=== PATIENT | female | born 1940 | race Hispanic/Latino ===

== ENCOUNTER 2017-01-30 12:17 | Inpatient (IN) | payer MEDICARE, OTHER ==
[~2017-01-30] VITALS: Ht 165.1 cm; Wt 137.9 kg
[~2017-01-30 12:17] MED LIST: AMLODIPINE BESYL5 MG PO; DETROL LA4 MG PO; DICYCLOMINE HCL10 MG PO; LOSARTAN POTAS100 MG PO; NEXIUM40 MG PO; NOVOLOG100 UNIT/1 SQ; SERTRALINE HCL50 MG PO
[2017-01-30] MEDS ORDERED: MORPHINE SULFATE 2 MG/ML SYR IV STA (14:32)
[2017-01-30 15:03] LABS: BASOPHILS % 0.1 % (0.0-1.0); EOSINOPHILS # (AUTO) 0.1 (0.0-0.4); HEMATOCRIT 27.9 % (34.2-44.1); HEMOGLOBIN 8.7 g/dL (12.0-16.0); LYMPHOCYTES # (AUTO) 0.8 (1.0-3.2); MEAN CORPUSCULAR HEMOGLOBIN 25.1 pg (28-32); MEAN CORPUSCULAR HGB CONC 31.2 g/dL (31-35); MEAN CORPUSCULAR VOLUME 80.4 fL (81-99); MONOCYTES # (AUTO) 0.4 (0.2-0.8); MONOCYTES % 4.4 % (4.4-11.3); NEUTROPHILS % 84.1 % (38.7-80.0); PLATELET COUNT 242 x10e3/uL (140-360); RED BLOOD COUNT 3.47 x10e6/uL (3.6-5.1)
[2017-01-30 15:17] LABS: ALANINE AMINOTRANSFERASE 11 IU/L (0-55); ALBUMIN 2.8 g/dL (3.5-5.0); ALBUMIN/GLOBULIN RATIO 0.6 (0.8-2.0); ALKALINE PHOSPHATASE 147 IU/L (40-150); ANION GAP 12.5 mmol/L (8-16); BLOOD UREA NITROGEN 20 mg/dL (7-26); BUN/CREATININE RATIO 24 (6-25); CALCIUM 8.7 mg/dL (8.4-10.2); CARBON DIOXIDE 27 mmol/L (22-29); CHLORIDE 106 mmol/L (98-107); CREATININE, SERUM 0.83 mg/dL (0.57-1.11); EST GLOMERULAR FILTRATION RATE > 60 ML/MIN (60-); GLUCOSE 84 mg/dL (74-118); POTASSIUM 4.5 mmol/L (3.5-5.1); SODIUM 141 mmol/L (136-145)
--- NOTE | 2017-01-30 16:03 | Diagnostic Imaging Report ---
PROCEDURE:HIP RIGHT 2-3 VW (+/- PELVIS) COMPARISON:None. INDICATIONS:FALL FINDINGS: BONES: Normal mineralization. No acute fracture or dislocation. Mild degenerative osteoarthrosis of the bilateral SI and hip joints. SOFT TISSUES:Extensive vascular calcification. OTHER:Degenerative changes of the lower lumbar spine. Phleboliths on the left hemipelvis. CONCLUSION: No acute displaced fracture. Jennifer Roberts M.D. Dictated by: Jennifer Roberts M.D. on 01/30/2017 at 16:10 Electronically approved by: Jennifer Roberts M.D. on 01/30/2017 at 16:10
[2017-01-30] MEDS ORDERED: HYDROCODONE/APAP 5MG-325MG TAB PO ONE (17:00)
[2017-01-30 17:10] LABS: BILIRUBIN,URINE NEGATIVE (NEGATIVE); KETONES,URINE NEGATIVE (NEGATIVE); LEUKOCYTE ESTERASE ,URINE TRACE (NEGATIVE); PROTEIN,URINE DIPSTICK NEGATIVE (NEGATIVE); URINE UROBILINOGEN 0.2 mg/dL (0.2 - 1)
[2017-01-30 17:12] LABS: CLARITY,URINE HAZY (CLEAR); COLOR,URINE YELLOW (YELLOW); NITRITE,URINE POSITIVE (NEGATIVE)
[2017-01-30 17:38] LABS: EPITHELIAL CELLS,URINE FEW /LPF; RBC,URINE 0-5 /HPF (0-5)
[2017-01-30 17:39] LABS: BACTERIA,URINE MANY /HPF
--- NOTE | 2017-01-30 18:39 | Diagnostic Imaging Report ---
PROCEDURE:CT PELVIS WITHOUT CONTRAST COMPARISON:None. INDICATIONS:FALL, RIGHT HIP PAIN TECHNIQUE:CT images were created without intravenous contrast. FINDINGS: PELVIC NODES:No pelvic or angle lymphadenopathy. PELVIC ORGANS:Atrophic uterus. BONES: Generalized osteopenia. Mild irregularity of the superior aspect of the right greater trochanter as seen on the coronal reconstruction image 97 series 501 may be related to enthesopathy versus less likely a small avulsion injury. Well-corticated ossicle medial to the left femoral neck on the axial image 90 series 3, suggestive of remote avulsion injury of the lesser trochanter. Mild degenerative changes of the bilateral SI joints. Facet arthropathy bilaterally at L5-S1. Small well-corticated ossicles posterior to the proximal humeral diaphysis as seen on axial image 115 series 4. OTHER: Jalloh catheter within decompressed urinary bladder. Vascular calcifications. CONCLUSION:No displaced fracture. No femoral neck fracture. Mild right greater trochanteric enthesopathy versus much less likely a small avulsion injury. Jennifer Roberts M.D. Dictated by: Jennifer Roberts M.D. on 01/30/2017 at 18:45 Electronically approved by: Jennifer Roberts M.D. on 01/30/2017 at 18:45
[2017-01-30] MEDS ORDERED: DEXTROSE 5%/0.45% SOD CHL 1,000 ML IV ONE (20:00)
[2017-01-30] MEDS ORDERED: DEXTROSE 50% SYRINGE 50 ML IV PRN (20:00)
[2017-01-30 23:00] VITALS: BP 122/62
[2017-01-30 23:08] VITALS: BP 122/62
[2017-01-31 00:58] VITALS: BP 122/62
[2017-01-31 04:00] VITALS: BP 123/58
[2017-01-31] MEDS: MORPHINE SULFATE 2 MG/ML SYR IV PRN ×4 (05:42→22:07)
[2017-01-31 07:24] LABS: BASOPHILS % 0.5 % (0.0-1.0); EOSINOPHILS # (AUTO) 0.2 (0.0-0.4); EOSINOPHILS % 3.4 % (0.0-6.0); HEMATOCRIT 24.5 % (34.2-44.1); LYMPHOCYTES # (AUTO) 0.9 (1.0-3.2); LYMPHOCYTES % 15.9 % (18.0-39.1); MEAN CORPUSCULAR HEMOGLOBIN 25.3 pg (28-32); MEAN CORPUSCULAR HGB CONC 30.6 g/dL (31-35); MEAN CORPUSCULAR VOLUME 82.5 fL (81-99); MONOCYTES # (AUTO) 0.5 (0.2-0.8); MONOCYTES % 8.8 % (4.4-11.3); PLATELET COUNT 208 x10e3/uL (140-360); RED BLOOD COUNT 2.97 x10e6/uL (3.6-5.1); RED CELL DISTRIBUTION WIDTH 16.3 % (11.7-14.4)
[2017-01-31 07:32] LABS: HEMOGLOBIN 7.5 g/dL (12.0-16.0)
[2017-01-31 07:53] LABS: ALANINE AMINOTRANSFERASE 9 IU/L (0-55); ALBUMIN 2.3 g/dL (3.5-5.0); ALBUMIN/GLOBULIN RATIO 0.6 (0.8-2.0); ALKALINE PHOSPHATASE 127 IU/L (40-150); ANION GAP 10.9 mmol/L (8-16); BLOOD UREA NITROGEN 17 mg/dL (7-26); BUN/CREATININE RATIO 20 (6-25); CALCIUM 8.3 mg/dL (8.4-10.2); CARBON DIOXIDE 27 mmol/L (22-29); CHLORIDE 106 mmol/L (98-107); CREATININE, SERUM 0.83 mg/dL (0.57-1.11); EST GLOMERULAR FILTRATION RATE > 60 ML/MIN (60-); GLUCOSE 154 mg/dL (74-118); POTASSIUM 3.9 mmol/L (3.5-5.1); SODIUM 140 mmol/L (136-145)
[2017-01-31 08:30] VITALS: BP 124/58
[2017-01-31] MEDS ORDERED: LORAZEPAM INJ 2 MG/ML VIAL IV PRN ×2 (11:15→18:30)
[2017-01-31 11:21] LABS: FERRITIN 174.94 ng/mL (4.63-204.00)
[2017-01-31 11:48] LABS: FOLATE 11.6 ng/mL (7.0-15.4)
[2017-01-31] MEDS: CEFTRIAXONE SOD 1 GM in WATER STERILE 10ML VIAL 10 ML IV SCH (11:55)
[2017-01-31 12:40] VITALS: BP 119/58
--- NOTE | 2017-01-31 12:44 | History and Physical ---
REASON FOR ADMISSION: Generalized weakness, UTI and hypoglycemia. HISTORY OF PRESENT ILLNESS: This is a 76-year-old female that presents with the above complaint. Patient presented yesterday. After feeling very weak during the day, patient got up to try to walk, and she says she fell onto her right side. Did not hit her head but did hit her right hip. Patient states that she was on the ground at the time, and her daughter called 11-02-. On paramedics' arrival, they noted that the patient's blood sugar was in the 40s-50s. Patient was brought to the emergency room for hypoglycemia and fall. Patient was noted to be anemic as well and has evidence on urinalysis of a UTI. Patient denies any fever, chills or any night sweats. She does state she does have some dysuria and urinary frequency. REVIEW OF SYSTEMS: A 14-point review of systems reviewed and negative other than what is previously stated in patient's HPI. PAST MEDICAL HISTORY: Positive for 1. Diabetes mellitus type 2. 2. Hypertension. PAST SURGICAL HISTORY 1. Cataract surgery. 2. Hernia repair. 3. I\T\D on her legs previously. PSYCH HISTORY: Reviewed and negative. SOCIAL HISTORY: Denies any tobacco, alcohol or illicit drug use. FAMILY HISTORY: Reviewed and negative. ALLERGIES: NO KNOWN DRUG ALLERGIES. MEDICATIONS: Please see the patient's reconciled home medication list. OBJECTIVE FINDINGS VITAL SIGNS: Patient's temperature is 98.8, T-max is 100.2, blood pressure 124/58, pulse of 94, respiration is 18, and patient's O2 sat is 94% on room air. IN GENERAL: This is a female. She is lying in bed. Patient is in no acute distress at this time. HEENT: Pupils are equal, round, reactive to light and accommodation. Extraocular muscles are intact. Anicteric sclerae. NECK: Trachea midline. No thyromegaly appreciated. CARDIOVASCULAR: Normal S1 and S2. No clicks, gallops or rubs appreciated. ABDOMINAL: Nontender, nondistended. Normoactive bowel sounds. EXTREMITIES: With 2+ pulses in upper and lower extremities bilaterally. LYMPHATIC: No lymphadenopathy appreciated. NEUROLOGICAL: GCS is 15 out of 15. PSYCH: AO x3. No suicidal ideations. LABS: The patient's WBC count is 5.6, hemoglobin is 7.5, hematocrit is 24.5 and platelet count is 208. Patient's MCV is 82.5. Chemistry shows a sodium of 140, potassium is 3.9, chloride is 106, bicarb is 27. Patient's BUN is 17, creatinine is 0.83. Patient's blood sugar is 139. LFTs otherwise unremarkable except for a decrease in albumin of 2.3. Patient's urinalysis showed positive nitrites, positive leukocytes, 11-20 WBCs and many bacteria. IMAGING STUDIES: The patient's pelvis and hip only indicated a mild right greater trochanteric enthesopathy versus a small avulsion injury with no evidence of any fractures. ASSESSMENT 1. Generalized weakness. 2. Symptomatic hypoglycemia. 3. Status post fall. 4. Complicated urinary tract infection. 5. Anemia, unclear etiology. 6. Diabetes mellitus type 2. 7. Morbid obesity. PLAN: This is a 76-year-old female who presents with status post fall, generalized weakness, hypoglycemia and UTI. For this patient's weakness, will have Physical Therapy come and evaluate this patient and put her on fall precautions. For now will treat secondary causes for the weakness like UTI and hypoglycemia and see if this improves her strength. The daughter states that she has had multiple falls over the past couple of weeks; so, will monitor her closely and evaluate her for inpatient versus outpatient rehab ultimately. For the patient's anemia, will get an FOBT and an anemia panel to evaluate the etiology of the patient's anemia. Will monitor her labs in the a.m. Patient is hemodynamically stable; so, does not need serial H\T\H's at this time. Patient states her stools are normal color and consistency; so, will see if the FOBT is positive. GI may need to be consulted for endoscopic evaluation. For the patient's hypoglycemia, patient will have a normal ADA diet and will have her covered with sliding-scale coverage only. For the patient's falls, patient will be on fall precautions and patient has been educated if she wants to get up and walk around to evaluate by Physical Therapy to have nurse assistance. For the patient's UTI, will put her on Rocephin. The cultures are growing gram-negative bacilli already. Will wait for final culture results and see if it needs to be adjusted. For the patient's diabetes, the patient will be on a sliding scale. This patient will be under observation but if does not improve may need to be switched to inpatient as she potentially will be here for greater than 2 midnights. Job#: [id number] EV
[2017-01-31] MEDS: INSULIN REGULAR, HUMAN 100 UNIT/1 ML 3ML VIAL SQ SCH ×3 (13:22→21:56)
[2017-01-31 16:15] VITALS: BP 133/62
[2017-01-31] MEDS: HYDROCODONE/APAP 5MG-325MG TAB PO PRN (18:31)
[2017-01-31 20:00] VITALS: BP 138/63
[2017-02-01 00:25] VITALS: BP 120/55
[2017-02-01 03:45] VITALS: BP 126/58
[2017-02-01 06:17] LABS: BASOPHILS % 0.5 % (0.0-1.0); EOSINOPHILS # (AUTO) 0.3 (0.0-0.4); EOSINOPHILS % 4.3 % (0.0-6.0); HEMATOCRIT 25.3 % (34.2-44.1); LYMPHOCYTES # (AUTO) 1.2 (1.0-3.2); LYMPHOCYTES % 19.8 % (18.0-39.1); MEAN CORPUSCULAR HEMOGLOBIN 24.8 pg (28-32); MEAN CORPUSCULAR HGB CONC 30.4 g/dL (31-35); MEAN CORPUSCULAR VOLUME 81.4 fL (81-99); MONOCYTES # (AUTO) 0.6 (0.2-0.8); MONOCYTES % 9.2 % (4.4-11.3); NEUTROPHILS # (AUTO) 4.1 (2.1-6.9); NEUTROPHILS % 65.9 % (38.7-80.0); PLATELET COUNT 204 x10e3/uL (140-360); RED BLOOD COUNT 3.11 x10e6/uL (3.6-5.1); RED CELL DISTRIBUTION WIDTH 16.2 % (11.7-14.4)
[2017-02-01 06:24] LABS: HEMOGLOBIN 7.7 g/dL (12.0-16.0)
[2017-02-01 06:38] LABS: ANION GAP 11.9 mmol/L (8-16); BLOOD UREA NITROGEN 14 mg/dL (7-26); BUN/CREATININE RATIO 16 (6-25); CALCIUM 7.9 mg/dL (8.4-10.2); CARBON DIOXIDE 26 mmol/L (22-29); CHLORIDE 106 mmol/L (98-107); CREATININE, SERUM 0.87 mg/dL (0.57-1.11); EST GLOMERULAR FILTRATION RATE > 60 ML/MIN (60-); GLUCOSE 135 mg/dL (74-118); POTASSIUM 3.9 mmol/L (3.5-5.1); SODIUM 140 mmol/L (136-145)
[2017-02-01] MEDS: INSULIN REGULAR, HUMAN 100 UNIT/1 ML 3ML VIAL SQ SCH ×4 (08:00→20:33)
[2017-02-01 09:01] VITALS: BP 131/60
[2017-02-01] MEDS: CEFTRIAXONE SOD 1 GM in WATER STERILE 10ML VIAL 10 ML IV SCH (10:35)
[2017-02-01] MEDS: HYDROCODONE/APAP 5MG-325MG TAB PO PRN (11:11)
[2017-02-01] MEDS ORDERED: SODIUM CHLORIDE 0.9% 250ML 250 ML IV ONE (12:00)
[2017-02-01 12:10] VITALS: BP 128/60
[2017-02-01] MEDS: PHENAZOPYRIDINE HCL 100 MG TAB PO SCH ×2 (14:28→20:33)
[2017-02-01] MEDS ORDERED: FUROSEMIDE40 MG PO (15:29)
[2017-02-01] MEDS ORDERED: METOPROLOL TART25 MG PO (15:29)
[2017-02-01] MEDS ORDERED: SUCRALFATE1 GM PO (15:29)
[2017-02-01] MEDS ORDERED: LYRICA50 MG PO (15:29)
[2017-02-01] MEDS ORDERED: CITALOPRAM HBR20 MG PO (15:29)
[2017-02-01] MEDS: MEGESTROL ACETATE 40 MG TAB PO SCH (16:15)
[2017-02-01 16:42] VITALS: BP 125/56
[2017-02-01 20:00] VITALS: BP 121/65
[2017-02-01] MEDS: PREGABALIN 50 MG CAP PO SCH (20:33)
[2017-02-01] MEDS ORDERED: SODIUM CHLORIDE 0.9% 250ML 250 ML ONE (21:46)
[2017-02-02 00:59] VITALS: BP 116/66
[2017-02-02] MEDS: HYDROCODONE/APAP 5MG-325MG TAB PO PRN (02:01)
[2017-02-02 05:33] VITALS: BP 121/76
[2017-02-02 07:51] LABS: BASOPHILS % 0.5 % (0.0-1.0); EOSINOPHILS # (AUTO) 0.3 (0.0-0.4); LYMPHOCYTES % 17.8 % (18.0-39.1); MEAN CORPUSCULAR HEMOGLOBIN 25.4 pg (28-32); MEAN CORPUSCULAR VOLUME 81.9 fL (81-99); MONOCYTES # (AUTO) 0.5 (0.2-0.8); MONOCYTES % 7.9 % (4.4-11.3); NEUTROPHILS % 68.5 % (38.7-80.0); PLATELET COUNT 199 x10e3/uL (140-360); RED BLOOD COUNT 3.54 x10e6/uL (3.6-5.1); RED CELL DISTRIBUTION WIDTH 15.4 % (11.7-14.4)
[2017-02-02] MEDS: INSULIN REGULAR, HUMAN 100 UNIT/1 ML 3ML VIAL SQ SCH ×4 (08:00→22:25)
[2017-02-02 08:02] VITALS: BP 144/65
[2017-02-02 08:11] LABS: ANION GAP 10.6 mmol/L (8-16); BLOOD UREA NITROGEN 13 mg/dL (7-26); BUN/CREATININE RATIO 15 (6-25); CARBON DIOXIDE 27 mmol/L (22-29); CHLORIDE 105 mmol/L (98-107); CREATININE, SERUM 0.86 mg/dL (0.57-1.11); EST GLOMERULAR FILTRATION RATE > 60 ML/MIN (60-); GLUCOSE 145 mg/dL (74-118); POTASSIUM 3.6 mmol/L (3.5-5.1); SODIUM 139 mmol/L (136-145)
[2017-02-02] MEDS ORDERED: PANTOPRAZOLE SOD 40 MG TABEC PO SCH (09:00)
[2017-02-02] MEDS: FUROSEMIDE 40 MG TAB PO SCH (09:01)
[2017-02-02] MEDS: PHENAZOPYRIDINE HCL 100 MG TAB PO SCH ×3 (09:01→22:25)
[2017-02-02] MEDS: METOPROLOL TARTRATE 25 MG TAB PO SCH (09:01)
[2017-02-02] MEDS: AMLODIPINE BESYLATE 10 MG TAB PO SCH (09:01)
[2017-02-02] MEDS: CITALOPRAM HYDROBROMIDE 20 MG TAB PO SCH (09:01)
[2017-02-02] MEDS: MEGESTROL ACETATE 40 MG TAB PO SCH ×2 (09:01→18:33)
[2017-02-02] MEDS: MUPIROCIN 2% OINT 22 GM TUBE TOP SCH (10:34)
[2017-02-02] MEDS: CEFTRIAXONE SOD 1 GM in WATER STERILE 10ML VIAL 10 ML IV SCH ×2 (10:35→22:25)
[2017-02-02 11:55] VITALS: BP 120/58
[2017-02-02] MEDS ORDERED: LORAZEPAM INJ 2 MG/ML VIAL IV PRN (12:30)
[2017-02-02 16:14] VITALS: BP 151/73
[2017-02-02] MEDS: DOCUSATE SODIUM 100 MG CAP PO SCH (17:23)
[2017-02-02] MEDS: MULTIVITAMINS/MINERALS TAB PO SCH (17:23)
[2017-02-02] MEDS: FERROUS SULFATE 325 MG TAB PO SCH (17:23)
[2017-02-02] MEDS: PANTOPRAZOLE SOD 40 MG TABEC PO SCH (17:23)
[2017-02-02] MEDS: ASCORBIC ACID 500 MG TAB PO SCH (17:24)
[2017-02-02] MEDS: OYST-CAL-D 500MG TABLET PO SCH (17:24)
[2017-02-02] MEDS: ENOXAPARIN SOD INJ 40 MG/0.4 ML SYR SC SCH (17:24)
[2017-02-02 20:00] VITALS: BP 153/75
[2017-02-02] MEDS ORDERED: CEFTRIAXONE SOD 1 GM VIAL ONE (22:15)
[2017-02-02] MEDS: PREGABALIN 50 MG CAP PO SCH (22:25)
[2017-02-03] VITALS: BP 146/71
[2017-02-03 04:00] VITALS: BP 149/77
[2017-02-03] MEDS: INSULIN REGULAR, HUMAN 100 UNIT/1 ML 3ML VIAL SQ SCH ×4 (07:30→20:54)
[2017-02-03] MEDS: PANTOPRAZOLE SOD 40 MG TABEC PO SCH ×2 (07:30→16:30)
[2017-02-03 07:40] LABS: BASOPHILS % 0.3 % (0.0-1.0); EOSINOPHILS # (AUTO) 0.3 (0.0-0.4); EOSINOPHILS % 5.3 % (0.0-6.0); HEMATOCRIT 29.5 % (34.2-44.1); HEMOGLOBIN 9.1 g/dL (12.0-16.0); LYMPHOCYTES # (AUTO) 1.2 (1.0-3.2); LYMPHOCYTES % 19.1 % (18.0-39.1); MEAN CORPUSCULAR HEMOGLOBIN 24.9 pg (28-32); MEAN CORPUSCULAR HGB CONC 30.8 g/dL (31-35); MEAN CORPUSCULAR VOLUME 80.8 fL (81-99); MONOCYTES # (AUTO) 0.5 (0.2-0.8); MONOCYTES % 8.1 % (4.4-11.3); NEUTROPHILS % 66.9 % (38.7-80.0); PLATELET COUNT 210 x10e3/uL (140-360); RED BLOOD COUNT 3.65 x10e6/uL (3.6-5.1); RED CELL DISTRIBUTION WIDTH 15.9 % (11.7-14.4)
[2017-02-03 07:57] VITALS: BP 129/66
[2017-02-03] MEDS: OYST-CAL-D 500MG TABLET PO SCH ×2 (08:00→17:00)
[2017-02-03] MEDS: ASCORBIC ACID 500 MG TAB PO SCH ×2 (08:00→17:00)
[2017-02-03] MEDS: FERROUS SULFATE 325 MG TAB PO SCH ×2 (08:00→17:00)
[2017-02-03] MEDS: MULTIVITAMINS/MINERALS TAB PO SCH ×2 (08:00→17:00)
[2017-02-03 08:12] LABS: ANION GAP 11.5 mmol/L (8-16); CREATININE, SERUM 1.12 mg/dL (0.57-1.11); POTASSIUM 3.5 mmol/L (3.5-5.1)
[2017-02-03] MEDS: DOCUSATE SODIUM 100 MG CAP PO SCH ×2 (09:00→17:00)
[2017-02-03] MEDS: FUROSEMIDE 40 MG TAB PO SCH (09:00)
[2017-02-03] MEDS: CITALOPRAM HYDROBROMIDE 20 MG TAB PO SCH (09:00)
[2017-02-03] MEDS: MEGESTROL ACETATE 40 MG TAB PO SCH ×2 (09:00→17:00)
[2017-02-03] MEDS: AMLODIPINE BESYLATE 10 MG TAB PO SCH (09:00)
[2017-02-03] MEDS: MUPIROCIN 2% OINT 22 GM TUBE TOP SCH (09:00)
[2017-02-03] MEDS: METOPROLOL TARTRATE 25 MG TAB PO SCH (09:00)
[2017-02-03] MEDS: PHENAZOPYRIDINE HCL 100 MG TAB PO SCH ×3 (09:00→20:54)
[2017-02-03] MEDS: CEFTRIAXONE SOD 1 GM in WATER STERILE 10ML VIAL 10 ML IV SCH ×2 (09:00→20:54)
[2017-02-03] MEDS ORDERED: CEFTRIAXONE SOD 1 GM VIAL ONE ×2 (09:05→20:42)
[2017-02-03 11:33] VITALS: BP 136/76
--- NOTE | 2017-02-03 13:22 | Diagnostic Imaging Report ---
EXAM: MRI PELVIS WO, MRI HIP RIGHT WO DATE: 02/02/2017 12:56 PM INDICATION: Fall/right hip pain. COMPARISON: CT dated 01/30/2017 Technique: Multiplanar multi sequence MRI of the pelvis/right hip was obtained without contrast. Limitations: Image quality moderately degraded secondary to morbid obesity. FINDINGS: No distinct marrow edema is present in the pelvis or hips to suggest occult fracture. Mild degenerative changes are present in the right hip with a small subchondral cyst in the right acetabulum. There is moderate edema in the musculature anterior and posterior to the right hip most consistent with strain. No significant joint effusion is present in either hip. No suspicious signal is identified in the sacrum or coccyx. No free fluid or adenopathy is present in the pelvis. Visualized bowel is unremarkable. Urinary bladder, uterus, and adnexa are grossly unremarkable. IMPRESSION: Within limitations of exam as above, no abnormal marrow signal present to suggest hip fracture. Mild abnormal signal the musculature about the right hip most consistent with strain/contusion. Case discussed with Dr. Millan at 1:00 PM on 02/03/2017. Signed by: Dr. Jonny Rodriguez MD on 02/03/2017 1:13 PM
[2017-02-03] MEDS: HYDROCODONE/APAP 5MG-325MG TAB PO PRN (15:04)
[2017-02-03 16:09] VITALS: BP 151/76
[2017-02-03] MEDS: ENOXAPARIN SOD INJ 40 MG/0.4 ML SYR SC SCH (17:00)
[2017-02-03 20:00] VITALS: BP 130/64
[2017-02-03] MEDS ORDERED: ACETAMINOPHEN 325 MG TAB PO PRN (20:15)
[2017-02-03] MEDS: PREGABALIN 50 MG CAP PO SCH (20:54)
[2017-02-03] MEDS ORDERED: GUAIFENESIN 600 MG TAB PO PRN (21:00)
[2017-02-03] MEDS: ALBUTEROL/IPRATROPIUM 3 ML NEB NEB SCH (23:45)
[2017-02-04] VITALS: BP 138/70
[2017-02-04] MEDS: ALBUTEROL/IPRATROPIUM 3 ML NEB NEB SCH ×6 (03:00→23:05)
[2017-02-04 04:00] VITALS: BP 145/73
--- NOTE | 2017-02-04 05:04 | Progress Note ---
DATE: February 03, 2017 SUBJECTIVE: Patient is seen at the bedside. Doing well. No distress. OBJECTIVE VITALS: Afebrile. Vital signs stable. EXTREMITIES: Has a grade 1 ulcer on the lateral aspect of the 5th metatarsophalangeal joint and a grade 2 ulcer on the medial aspect of the right ankle, healing slowly. Skin temperature is warm to touch. Pedal pulses are diminished. ASSESSMENT: Multiple grade 2 ulcers with diabetic neuropathy with edema and peripheral artery disease. PLAN: Will continue local wound care. Continue compression dressings with lymphedema pumps. Dr. Benitez will be consulting Dr. Brody for vascular evaluation. Will continue to follow. Job#: [id number] DANIELE
--- NOTE | 2017-02-04 06:12 | Diagnostic Imaging Report ---
EXAMINATION: CHEST SINGLE (PORTABLE) INDICATION: Wheezing COMPARISON: None FINDINGS: TUBES and LINES: None. LUNGS: Lungs are not well inflated. There are bibasilar atelectasis. There is mild prominence of the central pulmonary vasculature, consistent with pulmonary venous congestion. Interlobular septi thickening are noted in the perihilar and bibasilar regions. PLEURA: No pleural effusion or pneumothorax. HEART AND MEDIASTINUM: Cardiac size is mildly enlarged. There are atherosclerotic calcifications within the aorta. BONES AND SOFT TISSUES: No acute osseous lesion. Soft tissues are unremarkable. UPPER ABDOMEN: No free air under the diaphragm. IMPRESSION: Findings are compatible with cardiogenic edema Signed by: Dr. Luis Felipe Nieves M.D. on 02/04/2017 6:08 AM
[2017-02-04 07:24] LABS: BASOPHILS % 0.5 % (0.0-1.0); EOSINOPHILS # (AUTO) 0.3 (0.0-0.4); EOSINOPHILS % 5.7 % (0.0-6.0); HEMATOCRIT 30.9 % (34.2-44.1); HEMOGLOBIN 9.5 g/dL (12.0-16.0); LYMPHOCYTES # (AUTO) 1.3 (1.0-3.2); LYMPHOCYTES % 20.9 % (18.0-39.1); MEAN CORPUSCULAR HEMOGLOBIN 25.7 pg (28-32); MEAN CORPUSCULAR HGB CONC 30.7 g/dL (31-35); MEAN CORPUSCULAR VOLUME 83.7 fL (81-99); MONOCYTES # (AUTO) 0.6 (0.2-0.8); MONOCYTES % 9.2 % (4.4-11.3); NEUTROPHILS # (AUTO) 3.8 (2.1-6.9); NEUTROPHILS % 63.4 % (38.7-80.0); PLATELET COUNT 241 x10e3/uL (140-360); RED BLOOD COUNT 3.69 x10e6/uL (3.6-5.1)
[2017-02-04] MEDS: PANTOPRAZOLE SOD 40 MG TABEC PO SCH ×2 (07:30→16:30)
[2017-02-04] MEDS: INSULIN REGULAR, HUMAN 100 UNIT/1 ML 3ML VIAL SQ SCH ×4 (07:30→21:23)
[2017-02-04 07:36] LABS: ANION GAP 13.6 mmol/L (8-16); CALCIUM 8.4 mg/dL (8.4-10.2); CREATININE, SERUM 1.24 mg/dL (0.57-1.11); POTASSIUM 3.6 mmol/L (3.5-5.1)
[2017-02-04] MEDS ORDERED: CEFTRIAXONE SOD 1 GM VIAL ONE ×2 (07:38→20:55)
[2017-02-04 08:00] VITALS: BP 120/66
[2017-02-04] MEDS: MULTIVITAMINS/MINERALS TAB PO SCH ×2 (08:00→17:00)
[2017-02-04] MEDS: OYST-CAL-D 500MG TABLET PO SCH ×2 (08:00→17:00)
[2017-02-04] MEDS: FERROUS SULFATE 325 MG TAB PO SCH ×2 (08:00→17:00)
[2017-02-04] MEDS: ASCORBIC ACID 500 MG TAB PO SCH ×2 (08:00→17:00)
[2017-02-04] MEDS: PREDNISONE 10 MG TAB PO SCH (09:00)
[2017-02-04] MEDS: METOPROLOL TARTRATE 25 MG TAB PO SCH (09:00)
[2017-02-04] MEDS: CITALOPRAM HYDROBROMIDE 20 MG TAB PO SCH (09:00)
[2017-02-04] MEDS: MEGESTROL ACETATE 40 MG TAB PO SCH ×2 (09:00→17:00)
[2017-02-04] MEDS: AMLODIPINE BESYLATE 10 MG TAB PO SCH (09:00)
[2017-02-04] MEDS: CEFTRIAXONE SOD 1 GM in WATER STERILE 10ML VIAL 10 ML IV SCH ×2 (09:00→21:21)
[2017-02-04] MEDS: PHENAZOPYRIDINE HCL 100 MG TAB PO SCH (09:00)
[2017-02-04] MEDS: FUROSEMIDE 40 MG TAB PO SCH (09:00)
[2017-02-04] MEDS: DOCUSATE SODIUM 100 MG CAP PO SCH ×2 (09:00→17:00)
--- NOTE | 2017-02-04 10:06 | Consultation ---
DATE OF CONSULTATION: February 03, 2017 CARDIOLOGY CONSULTATION REQUESTING PHYSICIAN: Dr. Benitez REASON FOR CONSULTATION: Peripheral arterial disease and ulcer to the right leg. HISTORY OF PRESENT ILLNESS: Ms. Lux is a 76-year-old female with pertinent past medical history of diabetes and hypertension, who reports she came in to the ER due to a recent fall, where she fell on her right side. Since then, she has been experiencing pain. She also reports prior to this fall she has been not in the best of health. She has been weak and has been having issues controlling her blood sugars at home with reported hypoglycemia prior to admission with blood sugars in the 50s. At the present time, the patient denies any chest pain, shortness of breath, chills, fever, palpitations, or abdominal pain. The patient endorses multiple ulcers to the lower extremities, reporting that she has had an ulcer to the right leg surrounding her ankle on the lateral aspect for the last 6 months for which she has been getting wound care. However, she has not followed up as requested. She also now reports new ulcers that have developed on the right leg. These ulcers are currently covered with dressing. REVIEW OF SYSTEMS: Negative, except as mentioned above. PAST MEDICAL HISTORY 1. Diabetes mellitus, type 2. 2. Hypertension. 3. Anemia. 4. Asthma. 5. Arthritis. PAST SURGICAL HISTORY 1. Cataract surgery. 2. Umbilical hernia repair. SOCIAL HISTORY: Patient denies any tobacco, alcohol or illicit drug use. The patient has children and lives at home. FAMILY HISTORY: Noncontributory. ALLERGIES: PER ELECTRONIC CHART. CARDIOVASCULAR MEDICATIONS 1. Metoprolol 25 mg p.o. daily. 2. Lasix 40 p.o. daily. 3. Amlodipine 10 mg p.o. daily. 4. Lovenox 40 mg subcutaneous daily. LABS: WBC 6.02, hemoglobin 9.1, hematocrit 29.5, platelets 210. Sodium 137, potassium 3.5, BUN 14, creatinine 1.12, glucose 136, calcium 8.0. PHYSICAL EXAMINATION VITAL SIGNS: Temperature 99.9, pulse 90, respiratory rate 18, blood pressure 136/76. Oxygen saturation is 94% on room air. GENERAL: Alert and oriented times 3, resting comfortably in bed, does not appear to be in any acute distress. Family at the bedside. LUNGS: Diminished breath sounds in anterior lower lobes with scattered expiratory wheezes. Otherwise, clear to auscultation. CARDIOVASCULAR: Regular rate and rhythm. Systolic murmur present. Normal S1 and S2. ABDOMEN: Rounded, soft and nontender. LOWER EXTREMITIES: Warm to the touch with discoloration and multiple ulcers noted, covered with dressing. IMPRESSION 1. Severe peripheral arterial disease per Doppler. 2. Diabetes mellitus. 3. Generalized weakness. 4. Recent fall. 5. Anemia. RECOMMENDATIONS: Continue with the above-listed cardiac medications. Plan for possible peripheral angiogram in the midst of this week, hopefully Saturday. For the time being, continue wound care and monitor closely, especially out of bed. Obtain echocardiogram. Recommendations will follow. Will continue to follow this patient very closely. We thank you, Dr. Benitez, for this consultation and allowing us to participate in this patient's care. Dictated by: Glenna Vásquez NP Job#: [id number]
[2017-02-04 12:00] VITALS: BP 121/64
[2017-02-04] MEDS ORDERED: COLLAGENASE 5 GM TUBE TOP PRN (13:15)
--- NOTE | 2017-02-04 14:26 | Progress Note ---
DATE: February 04, 2017 SUBJECTIVE: Patient doing somewhat better. Decreased pain to both lower extremities. Has some burning sensation to the forefoot and plantar aspect of both feet. OBJECTIVE: Vitals: Afebrile. Pulse rate 82. Respirations 20. Blood pressure 121/64. O2 saturation 95%. Pedal pulses diminished. Ulceration is healing slowly. Periwound cellulitis present. ASSESSMENT: Peripheral arterial disease with multiple ulcerations to both lower extremities. PLAN: Will start Santyl collagenase to the right ankle ulceration and Bactroban ointment the left foot ulcer. Continue compression dressings. Dr. Brody will be possibly doing an arteriogram with angioplasty tomorrow. Will continue to monitor. Continue offloading. Job#: [id number]
[2017-02-04 16:00] VITALS: BP 110/66
[2017-02-04] MEDS: ENOXAPARIN SOD INJ 40 MG/0.4 ML SYR SC SCH (17:00)
[2017-02-04] MEDS: MUPIROCIN 2% OINT 22 GM TUBE TOP SCH ×2 (17:00→17:23)
[2017-02-04] MEDS ORDERED: VANCOMYCIN 1GM/NS 250 ML 250 ML IV ONE (19:30)
[2017-02-04] MEDS ORDERED: SODIUM CHLORIDE 0.9% 1000ML 1,000 ML IV ONE (19:30)
[2017-02-04 20:10] VITALS: BP 116/68
[2017-02-04] MEDS: PREGABALIN 50 MG CAP PO SCH (21:21)
--- NOTE | 2017-02-04 21:34 | Progress Note ---
DATE: February 04, 2017 CARDIOLOGY PROGRESS NOTE SUBJECTIVE: The patient denies chest pain or shortness of breath. OBJECTIVE VITAL SIGNS: Temperature 98.4 degrees, pulse 82, respiratory rate 20, blood pressure 121/65, oxygen saturation 95% on room air. GENERAL: Awake, alert and in no acute distress. LUNGS: Clear to auscultation bilaterally. No wheezes or crackles. CARDIOVASCULAR: Normal rate, regular rhythm. Systolic murmur. Normal S1 and S2. ABDOMEN: Soft and nontender. EXTREMITIES: Dressings present. CARDIAC MEDICATIONS: 1. Enoxaparin 40 mg subcu daily. 2. Metoprolol 25 mg p.o. daily. 3. Furosemide 40 mg p.o. daily. 4. Amlodipine 10 mg p.o. daily. LABORATORY DATA: WBC 5.9, hemoglobin 9.5, hematocrit 30.9, platelets 241,000, sodium 142, potassium 3.6, chloride 103, CO2 of 29, BUN 16, creatinine 1.24. TELEMETRY: None. IMPRESSION 1. Severe peripheral arterial disease by noninvasive Doppler evaluation. 2. Right lower extremity wounds and ulcers. 3. Diabetes mellitus. 4. Generalized weakness. 5. Recent fall. 6. Anemia. 7. Hypertension. RECOMMENDATIONS: We will evaluate schedule for time of peripheral angiogram. Continue with current cardiac medications. Wound care per primary service. Thank you for this consult. We will continue to follow. Job#: [id number] GH MTDD
[2017-02-05] MEDS: ALBUTEROL/IPRATROPIUM 3 ML NEB NEB SCH ×6 (00:10→19:35)
[2017-02-05 00:37] VITALS: BP 118/77
[2017-02-05 05:14] VITALS: BP 122/57
--- NOTE | 2017-02-05 06:58 | Diagnostic Imaging Report ---
EXAM: CHEST SINGLE (PORTABLE), AP 1 view DATE: 02/05/2017 5:00 AM Time stamp on exam: 0606 hours INDICATION: Shortness of breath, weakness COMPARISON: None FINDINGS: LINES/TUBES: None LUNGS: Nondiagnostic secondary to motion and technique. PLEURA: No effusions or pneumothorax. HEART AND MEDIASTINUM: Stable appearance. BONES AND SOFT TISSUES: No acute findings. IMPRESSION: Likely no interval change, though limited evaluation of the lungs. Signed by: Dr. Juana Fountain M.D. on 02/05/2017 6:54 AM
[2017-02-05 07:10] LABS: ANION GAP 12.6 mmol/L (8-16); CALCIUM 8.4 mg/dL (8.4-10.2); CREATININE, SERUM 1.16 mg/dL (0.57-1.11); POTASSIUM 3.6 mmol/L (3.5-5.1)
[2017-02-05 07:28] LABS: BASOPHILS % 0.3 % (0.0-1.0); EOSINOPHILS # (AUTO) 0.3 (0.0-0.4); EOSINOPHILS % 4.5 % (0.0-6.0); HEMATOCRIT 29.8 % (34.2-44.1); HEMOGLOBIN 9.2 g/dL (12.0-16.0); MEAN CORPUSCULAR HEMOGLOBIN 25.5 pg (28-32); MEAN CORPUSCULAR HGB CONC 30.9 g/dL (31-35); MEAN CORPUSCULAR VOLUME 82.5 fL (81-99); MONOCYTES # (AUTO) 0.5 (0.2-0.8); MONOCYTES % 7.1 % (4.4-11.3); NEUTROPHILS # (AUTO) 5.2 (2.1-6.9); NEUTROPHILS % 73.7 % (38.7-80.0); PLATELET COUNT 241 x10e3/uL (140-360); RED BLOOD COUNT 3.61 x10e6/uL (3.6-5.1)
[2017-02-05] MEDS: PANTOPRAZOLE SOD 40 MG TABEC PO SCH ×2 (07:30→16:30)
[2017-02-05] MEDS: INSULIN REGULAR, HUMAN 100 UNIT/1 ML 3ML VIAL SQ SCH ×4 (07:30→21:50)
[2017-02-05] MEDS: ASCORBIC ACID 500 MG TAB PO SCH ×2 (08:00→17:00)
[2017-02-05] MEDS: MULTIVITAMINS/MINERALS TAB PO SCH ×2 (08:00→17:00)
[2017-02-05] MEDS: OYST-CAL-D 500MG TABLET PO SCH ×2 (08:00→17:00)
[2017-02-05] MEDS: FERROUS SULFATE 325 MG TAB PO SCH ×2 (08:00→17:00)
[2017-02-05 08:01] VITALS: BP 141/92
[2017-02-05] MEDS ORDERED: CEFTRIAXONE SOD 1 GM VIAL ONE ×2 (08:15→21:41)
[2017-02-05] MEDS: MEGESTROL ACETATE 40 MG TAB PO SCH ×2 (09:00→17:00)
[2017-02-05] MEDS: FUROSEMIDE 40 MG TAB PO SCH (09:00)
[2017-02-05] MEDS: CITALOPRAM HYDROBROMIDE 20 MG TAB PO SCH (09:00)
[2017-02-05] MEDS: METOPROLOL TARTRATE 25 MG TAB PO SCH (09:00)
[2017-02-05] MEDS: PREDNISONE 10 MG TAB PO SCH (09:00)
[2017-02-05] MEDS: CEFTRIAXONE SOD 1 GM in WATER STERILE 10ML VIAL 10 ML IV SCH ×2 (09:00→21:48)
[2017-02-05] MEDS: AMLODIPINE BESYLATE 10 MG TAB PO SCH (09:00)
[2017-02-05] MEDS ORDERED: COLLAGENASE 5 GM TUBE TOP SCH (09:00)
[2017-02-05] MEDS: DOCUSATE SODIUM 100 MG CAP PO SCH ×2 (09:00→17:00)
--- NOTE | 2017-02-05 09:09 | Progress Note ---
DATE: February 05, 2017 SUBJECTIVE: Patient doing better. Has compression devices on both lower extremities. Denies any history of fever, chills, nausea, or vomiting. OBJECTIVE VITAL SIGNS: Afebrile. Vital signs stable. EXTREMITIES: Both lower extremity ulcerations healing nicely. Skin temperature is warm to touch. Ulcerations healing nicely. Pedal pulses are diminished. LABS: Noted. White blood cell count 7.6, hemoglobin 9.2. ASSESSMENT: Multiple grade 2 ulcers to both lower extremities, healing well with diabetic neuropathy and peripheral arterial disease. PLAN: Will continue compression devices. Continue local wound care. Continue offloading. Will continue to follow. Job#: [id number] RI
[2017-02-05 12:00] VITALS: BP 142/71
[2017-02-05 16:00] VITALS: BP 126/70
[2017-02-05] MEDS: ENOXAPARIN SOD INJ 40 MG/0.4 ML SYR SC SCH (17:00)
[2017-02-05] MEDS: MUPIROCIN 2% OINT 22 GM TUBE TOP SCH (17:00)
--- NOTE | 2017-02-05 17:26 | Consultation ---
DATE OF CONSULTATION: REASON FOR CONSULTATION: Ulcer on the foot. Recommendation for antibiotics. HISTORY OF PRESENT ILLNESS: This is a 76-year-old female who has history of being morbidly obese, diabetes mellitus, hypertension, cataract surgery, hernia repaired. She comes in because she is having weakness, pain on the right side of her abdomen. The patient apparently was feeling weak the day she came to the hospital, not feeling well. Patient was having pain on the right side of the lower part of the abdomen. In the emergency room she was evaluated. Her urinalysis was positive for UTI. She was anemic and so she was admitted. The patient has on admission had a white count 5.6, hemoglobin 7.5, potassium 3.9, albumin 2.3. The patient was admitted with diagnosis of generalized weakness, hypomagnesemia, status post fall, UTI, anemia and diabetes mellitus in morbidly obese patient. The patient was seen by podiatry, Dr. Giuseppe Crouch. She has multiple wounds on the low lower extremities, stage 1 to 2. Culture of the wound was done apparently and came back positive for MRSA and infectious disease was consulted. Patient tells me she has been having problem with her leg for a long time, but she is not here because of her legs because they have always been like that. She has been seen by cardiology. She also has peripheral vascular disease. LABORATORY DATA: Reviewed. Her wound cultures showed MRSA. The urine culture showed Klebsiella pneumonia and Klebsiella pneumonia was pansensitive. The skin culture was MRSA as mentioned above. Sensitivity pattern reviewed. PHYSICAL EXAMINATION: GENERAL: She is currently alert and oriented and does not seem to be in acute distress. Obese. VITALS: Stable, afebrile. HEENT: She is not icteric. NECK: Supple. CHEST: Clear bilaterally. COR: No murmur. ABDOMEN: Soft and obese. EXTREMITIES: There is no erythema or edema of the legs, but she has a few ulcers, stage 1-2. IMPRESSION: 1. Diabetic foot ulcers in a patient who is morbidly obese with peripheral vascular disease. 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 She is currently on vancomycin. There may be a component of cellulitis. She probably would benefit from vancomycin for a couple of days. 2. Urinary tract infection with E.coli. She is currently on Rocephin. Can switch to oral Cipro 500 mg p.o. b.i.d. to finish 14 days for a morbidly obese patient. 3. Chronic kidney disease. 4. Peripheral vascular disease. 5. Anemia. 6. Will follow with you. Job#: [id number] GEETA
[2017-02-05 20:00] VITALS: BP 135/72
[2017-02-05] MEDS: PREGABALIN 50 MG CAP PO SCH (21:48)
[2017-02-05] MEDS ORDERED: POLYETHYLENE GLYCOL 3350 17 GM PACK PO PRN (22:30)
--- NOTE | 2017-02-05 22:53 | Progress Note ---
DATE: February 05, 2017 CARDIOLOGY PROGRESS NOTE SUBJECTIVE: No chest pain or shortness of breath. OBJECTIVE VITALS: Temperature of 97.7. Heart rate 85. Respiratory rate 22. Blood pressure 126/70. O2 sat 95% on room air. GENERAL: No acute distress. Alert. NECK: No JVD. CHEST: Clear to auscultation. CARDIOVASCULAR: Regular rate and rhythm. Normal S1 and S2. No S3 or S4. Systolic ejection murmur 1/6. ABDOMEN: Soft. EXTREMITIES: Lower extremities with bilateral lower extremity wounds. Right ankle ulceration and left hip ulcer. CARDIOVASCULAR MEDICATIONS 1. Ferrous sulfate 325 mg b.i.d. 2. Enoxaparin 40 mg subcutaneous daily. 3. Prednisone 10 mg daily. 4. Metoprolol tartrate 25 mg daily, which will change to extended release formulation. 5. Furosemide 40 mg daily. 6. Amlodipine 10 mg daily. STUDIES: White blood cell 7, hemoglobin 9.2, stable from 9.5. Of note, patient came in with hemoglobin of 7.7, platelets 241,000. Creatinine is 1.16 improved from. Glucose improved to 127. Chest x-ray, motion artifact, limited evaluation of lungs, cardiomediastinal seems stable in appearance. ASSESSMENT 1. Bilateral lower extremity wounds. 2. Severe PAD by Doppler ultrasound. 3. Hypertension. 4. Generalized weakness, follow. 5. Diabetes mellitus with neuropathy. 6. CKD. RECOMMENDATIONS: Send fecal occult blood test. Monitor H and H and renal function. Consider peripheral angiography and possible intervention once excluding bleeding and confirming stable kidney function, possibly tomorrow depending on results. Further recommendations to follow. Continue current cardiovascular medications as above with change of metoprolol to extended release formulation. Antiplatelets to be initiated if fecal occult blood test is negative. Job#: [id number] CQ
[2017-02-06] VITALS (13 sets, daily range): BP systolic 112–138; BP diastolic 58–78
[2017-02-06] MEDS: ALBUTEROL/IPRATROPIUM 3 ML NEB NEB SCH ×5 (04:15→23:50)
[2017-02-06 06:48] LABS: BASOPHILS % 0.1 % (0.0-1.0); EOSINOPHILS # (AUTO) 0.3 (0.0-0.4); EOSINOPHILS % 4.7 % (0.0-6.0); HEMATOCRIT 31.3 % (34.2-44.1); HEMOGLOBIN 9.4 g/dL (12.0-16.0); LYMPHOCYTES % 14.7 % (18.0-39.1); MEAN CORPUSCULAR HEMOGLOBIN 25.1 pg (28-32); MEAN CORPUSCULAR VOLUME 83.5 fL (81-99); MONOCYTES # (AUTO) 0.3 (0.2-0.8); MONOCYTES % 4.1 % (4.4-11.3); NEUTROPHILS # (AUTO) 5.3 (2.1-6.9); NEUTROPHILS % 76.1 % (38.7-80.0); PLATELET COUNT 261 x10e3/uL (140-360); RED BLOOD COUNT 3.75 x10e6/uL (3.6-5.1); RED CELL DISTRIBUTION WIDTH 16.3 % (11.7-14.4)
[2017-02-06 07:02] LABS: INR 1.06; PROTHROMBIN TIME 14.3 seconds (11.9-14.5)
[2017-02-06 07:06] LABS: ANION GAP 13.5 mmol/L (8-16); CALCIUM 8.5 mg/dL (8.4-10.2); CREATININE, SERUM 1.21 mg/dL (0.57-1.11); MAGNESIUM 1.8 MG/DL (1.3-2.1); POTASSIUM 3.5 mmol/L (3.5-5.1)
[2017-02-06 07:27] LABS: THYROID STIMULATING HORMONE 2.25 uIU/mL (0.350-4.940)
[2017-02-06] MEDS: PANTOPRAZOLE SOD 40 MG TABEC PO SCH ×2 (07:30→16:30)
[2017-02-06] MEDS: INSULIN REGULAR, HUMAN 100 UNIT/1 ML 3ML VIAL SQ SCH ×4 (07:30→22:12)
[2017-02-06] MEDS: FERROUS SULFATE 325 MG TAB PO SCH ×2 (08:00→17:00)
[2017-02-06] MEDS: OYST-CAL-D 500MG TABLET PO SCH ×2 (08:00→17:00)
[2017-02-06] MEDS: ASCORBIC ACID 500 MG TAB PO SCH ×2 (08:00→17:00)
[2017-02-06] MEDS: MULTIVITAMINS/MINERALS TAB PO SCH ×2 (08:00→17:00)
[2017-02-06] MEDS: DOCUSATE SODIUM 100 MG CAP PO SCH ×2 (09:00→17:00)
[2017-02-06] MEDS: MUPIROCIN 2% OINT 22 GM TUBE TOP SCH ×2 (09:00→22:10)
[2017-02-06] MEDS: MAGNESIUM OXIDE 400 MG TAB PO SCH ×2 (09:00→17:00)
[2017-02-06] MEDS: METOPROLOL SUCCINATE 25 MG TAB XL PO SCH (09:00)
[2017-02-06] MEDS: FUROSEMIDE 40 MG TAB PO SCH (09:00)
[2017-02-06] MEDS: MEGESTROL ACETATE 40 MG TAB PO SCH ×2 (09:00→17:00)
[2017-02-06] MEDS: CITALOPRAM HYDROBROMIDE 20 MG TAB PO SCH (09:00)
[2017-02-06] MEDS: ZINC SULFATE 220 MG CAP PO SCH ×2 (09:00→17:00)
[2017-02-06] MEDS: AMLODIPINE BESYLATE 10 MG TAB PO SCH (09:00)
[2017-02-06] MEDS: PREDNISONE 10 MG TAB PO SCH (09:00)
--- NOTE | 2017-02-06 09:38 | Progress Note ---
DATE: February 06, 2017 SUBJECTIVE: Patient doing better. Decreased pain to both lower extremities. OBJECTIVE VITAL SIGNS: Afebrile. Vital signs stable. EXTREMITIES: Ulcerations to both lower extremities healing. Pedal pulses are diminished. Skin temperature warm to touch to both lower extremities. ASSESSMENT: Peripheral artery disease with diabetic neuropathy with multiple grade 1 and 2 ulcerations healing bilaterally. PLAN: Will discontinue Santyl. Start Bactroban ointment to the ulcerations to both lower extremities. Patient will be going through an aorta arteriogram today with possible surgical intervention per Dr. Ferrari. Continue local wound care. Continue offloading. Continue IV antibiotics. Job#: [id number] DANIELE
[2017-02-06] MEDS ORDERED: CEFTRIAXONE SOD 1 GM VIAL ONE (10:26)
[2017-02-06] MEDS: CEFTRIAXONE SOD 1 GM in WATER STERILE 10ML VIAL 10 ML IV SCH ×2 (10:29→22:10)
[2017-02-06] MEDS: ENOXAPARIN SOD INJ 40 MG/0.4 ML SYR SC SCH (17:00)
[2017-02-06] MEDS ORDERED: IOPAMIDOL 370 MG/ML 200 ML INFUS..BTL INJ ONE (17:27)
[2017-02-06] MEDS ORDERED: FENTANYL CITRATE/PF 100MCG/2 ML INJ ONE (17:44)
[2017-02-06] MEDS ORDERED: MIDAZOLAM HCL 2 MG/2 ML VIAL ONE (17:44)
[2017-02-06] MEDS ORDERED: HEPARIN SOD/SOD CHLORIDE 1,000 ML ONE (17:44)
[2017-02-06] MEDS ORDERED: SODIUM CHLORIDE 0.9% 1000ML 1,000 ML ONE (18:14)
--- NOTE | 2017-02-06 18:36 | Progress Note ---
DATE: February 06, 2017 CARDIOLOGY PROGRESS NOTE SUBJECTIVE: The patient denies chest pain. She reports shortness of breath when she coughs. OBJECTIVE VITAL SIGNS: Temperature 98 degrees, pulse 98, respiratory rate 18, blood pressure 133/62, oxygen saturation 98%. GENERAL: Awake, alert and in no acute distress. LUNGS: Clear to auscultation bilaterally. No wheezes or crackles. CARDIOVASCULAR: Normal rate, regular rhythm. Systolic murmur 1/6. Normal S1 and S2. ABDOMEN: Soft. EXTREMITIES: Bilateral lower extremities ulceration. CARDIAC MEDICATIONS: 1. Enoxaparin 40 mg subcu daily. 2. Metoprolol tartrate 25 mg p.o. daily. 3. Furosemide 40 mg p.o. daily. 4. Amlodipine 10 mg p.o. daily. LABORATORY DATA: WBC 7, hemoglobin 9.4, hematocrit 31.3, platelets 261,000, sodium 141, potassium 3.5, chloride 103, CO2 of 28, BUN 24, creatinine 1.21. Stool occult blood negative. IMPRESSION 1. Bilateral lower extremity wounds. 2. Severe peripheral arterial disease by noninvasive Doppler evaluation. 3. Hypertension. 4. Generalized weakness. 5. Diabetes mellitus. 6. Recent fall. 7. Anemia. 8. [id number] kidney disease. RECOMMENDATIONS: Stool occult blood was negative. Renal function has been stable. Based on scheduling availability, will attempt to proceed with peripheral angiogram today. Continue current cardiac medications. Initiate antiplatelet therapy based on peripheral angiogram results. Thank you for this consult. We will continue to follow. Job#: [id number]
[2017-02-06] MEDS: PREGABALIN 50 MG CAP PO SCH (22:10)
[2017-02-06] MEDS: INSULIN DETEMIR 100 UNIT/ML PEN SQ SCH (22:13)
[2017-02-07] VITALS (7 sets, daily range): BP systolic 114–140; BP diastolic 60–72
--- NOTE | 2017-02-07 01:37 | Operative Report ---
DATE OF PROCEDURE: February 06, 2017 PROCEDURE INDICATIONS: Bilateral lower extremity wounds with abnormal Doppler ultrasound concerning for peripheral arterial disease. PROCEDURES PERFORMED 1. Abdominal aortogram. 2. Selective lower extremity angiography, bilateral. 3. Third-order catheter placement from right common femoral artery to left common femoral artery. 4. Right common femoral artery 6-German Angio-Seal closure. PROCEDURE COMPLICATIONS: None. ESTIMATED BLOOD LOSS: Less than 15 mL. PROCEDURE SUMMARY: After consent was obtained, the patient was prepped and draped in a sterile fashion. The right femoral site was locally infiltrated with 2% lidocaine. Using a micropuncture kit, a 6-German sheath was positioned to the right common femoral artery. An Omni flush catheter was used for abdominal aortogram, as well as selective third-order catheter placement to the left femoral artery. Selective angiography of each of bilateral lower extremities was performed, including digital subtraction confirming mild peripheral arterial disease. Overall, less than 30% disease across the infrarenal abdominal aorta, iliac vessels, femoral vessels, popliteal vessels, 3-vessel runoff to bilateral lower extremities with somewhat small caliber right anterior tibial and right peroneal arteries, but overall 3-vessel runoff throughout. CONCLUSION 1. Mild peripheral arterial disease. 2. Wounds to bilateral lower extremities. RECOMMENDATIONS: Venous evaluation as well as lymphedema assessment. Consider compression therapy in addition to wound care, diabetes care and antibiotics as considered by primary service. Bed rest overnight and IV fluids. Job#: [id number] DANIELE
[2017-02-07] MEDS: ALBUTEROL/IPRATROPIUM 3 ML NEB NEB SCH ×5 (03:20→21:00)
[2017-02-07] MEDS: INSULIN REGULAR, HUMAN 100 UNIT/1 ML 3ML VIAL SQ SCH ×4 (07:30→20:55)
[2017-02-07] MEDS ORDERED: CEFTRIAXONE SOD 1 GM VIAL ONE ×2 (08:16→20:32)
--- NOTE | 2017-02-07 08:27 | Progress Note ---
DATE: February 07, 2017 SUBJECTIVE: Patient seen at bedside. Doing well. No distress. OBJECTIVE VITAL SIGNS: Afebrile. Vital signs stable. EXTREMITIES: Ulcerations to both lower extremities continue to improve. Skin temperature is warm to touch. ASSESSMENT: Multiple grade 2 and 1 ulcerations to both lower extremities, healing. PLAN: Will continue with light film of Bactroban ointment covered by a light dry dressing. Continue offloading. Will continue to follow. Job#: [id number] DANIELE
[2017-02-07] MEDS: MULTIVITAMINS/MINERALS TAB PO SCH ×2 (08:28→16:24)
[2017-02-07] MEDS: OYST-CAL-D 500MG TABLET PO SCH ×2 (08:28→16:24)
[2017-02-07] MEDS: ASCORBIC ACID 500 MG TAB PO SCH ×2 (08:28→16:24)
[2017-02-07] MEDS: PANTOPRAZOLE SOD 40 MG TABEC PO SCH ×2 (08:28→16:24)
[2017-02-07] MEDS: FERROUS SULFATE 325 MG TAB PO SCH ×2 (08:28→16:24)
[2017-02-07] MEDS: AMLODIPINE BESYLATE 10 MG TAB PO SCH (08:29)
[2017-02-07] MEDS: MAGNESIUM OXIDE 400 MG TAB PO SCH ×2 (08:29→16:24)
[2017-02-07] MEDS: CITALOPRAM HYDROBROMIDE 20 MG TAB PO SCH (08:29)
[2017-02-07] MEDS: CEFTRIAXONE SOD 1 GM in WATER STERILE 10ML VIAL 10 ML IV SCH ×2 (08:29→20:54)
[2017-02-07] MEDS: ZINC SULFATE 220 MG CAP PO SCH ×2 (08:29→16:24)
[2017-02-07] MEDS: FUROSEMIDE 40 MG TAB PO SCH (08:29)
[2017-02-07] MEDS: DOCUSATE SODIUM 100 MG CAP PO SCH ×2 (08:29→16:24)
[2017-02-07] MEDS: METOPROLOL SUCCINATE 25 MG TAB XL PO SCH (08:29)
[2017-02-07] MEDS: MEGESTROL ACETATE 40 MG TAB PO SCH ×2 (08:29→16:24)
[2017-02-07] MEDS: MUPIROCIN 2% OINT 22 GM TUBE TOP SCH ×2 (10:52→16:24)
--- NOTE | 2017-02-07 14:18 | Progress Note ---
DATE: February 07, 2017 CARDIOLOGY PROGRESS NOTE SUBJECTIVE: Patient denies chest pain or shortness of breath. OBJECTIVE VITAL SIGNS: Temperature 97.8 degrees, pulse 75, respiratory rate 18, blood pressure 127/64, oxygen saturation 94%. GENERAL: Obese. Awake, no acute distress. LUNGS: Clear to auscultation bilaterally. No wheezes or crackles. CARDIOVASCULAR: Normal rate, regular rhythm. Systolic murmur 1/6. Normal S1 and S2. ABDOMEN: Soft. EXTREMITIES: Bilateral lower extremities with ulceration. Right groin without hematoma or bruit. CARDIAC MEDICATIONS 1. Metoprolol succinate 25 mg p.o. daily. 2. Furosemide 40 mg p.o. daily. 3. Amlodipine 10 mg p.o. daily. LABS: None today. TELEMETRY: Normal sinus rhythm. PERIPHERAL ANGIOGRAM: Demonstrated mild peripheral arterial disease with less than 30% disease across the infrarenal abdominal aorta, iliac vessels, femoral vessels, popliteal vessels and 3-vessel runoff to bilateral lower extremities. IMPRESSION 1. Bilateral lower extremity wounds. 2. Hypertension. 3. Generalized weakness. 4. Diabetes mellitus. 5. Recent fall. 6. Anemia. 7. Sjxkv-yd-ykfnfnk kidney disease. RECOMMENDATIONS: Suspect ulcerations may be due to venous insufficiency. Recommend evaluation for venous insufficiency as well as lymphedema. Continue current cardiac medications. Recommend elevation and compression wrapping. Thank you for this consult. We will continue to follow. Job#: [id number] CYNTHIA
[2017-02-07] MEDS ORDERED: BENZONATATE 100 MG CAP PO PRN (15:30)
[2017-02-07] MEDS: ENOXAPARIN SOD INJ 40 MG/0.4 ML SYR SC SCH (16:24)
[2017-02-07] MEDS: PREGABALIN 50 MG CAP PO SCH (20:54)
[2017-02-07] MEDS: INSULIN DETEMIR 100 UNIT/ML PEN SQ SCH (20:55)
[2017-02-08 00:26] VITALS: BP 100/51
[2017-02-08 06:43] LABS: BASOPHILS % 0.4 % (0.0-1.0); EOSINOPHILS # (AUTO) 0.4 (0.0-0.4); EOSINOPHILS % 5.4 % (0.0-6.0); HEMATOCRIT 27.8 % (34.2-44.1); HEMOGLOBIN 8.4 g/dL (12.0-16.0); LYMPHOCYTES # (AUTO) 1.3 (1.0-3.2); LYMPHOCYTES % 18.8 % (18.0-39.1); MEAN CORPUSCULAR HEMOGLOBIN 25.3 pg (28-32); MEAN CORPUSCULAR HGB CONC 30.2 g/dL (31-35); MEAN CORPUSCULAR VOLUME 83.7 fL (81-99); MONOCYTES # (AUTO) 0.5 (0.2-0.8); MONOCYTES % 6.4 % (4.4-11.3); NEUTROPHILS # (AUTO) 4.9 (2.1-6.9); NEUTROPHILS % 68.6 % (38.7-80.0); PLATELET COUNT 232 x10e3/uL (140-360); RED BLOOD COUNT 3.32 x10e6/uL (3.6-5.1); RED CELL DISTRIBUTION WIDTH 16.4 % (11.7-14.4)
[2017-02-08 06:56] VITALS: BP 122/58
[2017-02-08 07:05] LABS: ANION GAP 11.9 mmol/L (8-16); CALCIUM 8.3 mg/dL (8.4-10.2); CREATININE, SERUM 1.15 mg/dL (0.57-1.11); POTASSIUM 3.9 mmol/L (3.5-5.1)
[2017-02-08] MEDS: ALBUTEROL/IPRATROPIUM 3 ML NEB NEB SCH ×5 (07:20→23:15)
[2017-02-08] MEDS: INSULIN REGULAR, HUMAN 100 UNIT/1 ML 3ML VIAL SQ SCH ×4 (07:30→21:45)
[2017-02-08] MEDS: PANTOPRAZOLE SOD 40 MG TABEC PO SCH ×2 (07:30→16:30)
[2017-02-08] MEDS: FERROUS SULFATE 325 MG TAB PO SCH ×2 (08:00→17:27)
[2017-02-08] MEDS: ASCORBIC ACID 500 MG TAB PO SCH ×2 (08:00→17:27)
[2017-02-08] MEDS: OYST-CAL-D 500MG TABLET PO SCH ×2 (08:00→17:27)
[2017-02-08] MEDS ORDERED: CEFTRIAXONE SOD 1 GM VIAL ONE (08:18)
[2017-02-08 08:27] VITALS: BP 131/61
--- NOTE | 2017-02-08 08:50 | Progress Note ---
DATE: February 08, 2017 SUBJECTIVE: Patient doing better. Denies any history of fever, chills, nausea, or vomiting. OBJECTIVE VITAL SIGNS: Afebrile. Vital signs stable. EXTREMITIES: Both lower extremity ulcerations continue to improve down to dermis. Decreased periwound cellulitis. Pedal pulses are diminished, but skin temperature is warm to touch. ASSESSMENT: Multiple grade 1 and 2 ulcerations to both lower extremities, healing. PLAN: Will continue local wound care. Continue offloading. Will continue to follow. Job#: [id number] DANIELE
[2017-02-08] MEDS: MULTIVITAMINS/MINERALS TAB PO SCH ×2 (09:34→17:27)
[2017-02-08] MEDS: CEFTRIAXONE SOD 1 GM VIAL IV SCH ×2 (09:35→21:21)
[2017-02-08] MEDS: MEGESTROL ACETATE 40 MG TAB PO SCH ×2 (09:35→17:27)
[2017-02-08] MEDS: ZINC SULFATE 220 MG CAP PO SCH ×2 (09:35→17:27)
[2017-02-08] MEDS: AMLODIPINE BESYLATE 10 MG TAB PO SCH (09:35)
[2017-02-08] MEDS: FUROSEMIDE 40 MG TAB PO SCH (09:35)
[2017-02-08] MEDS: DOCUSATE SODIUM 100 MG CAP PO SCH ×2 (09:35→17:27)
[2017-02-08] MEDS: CITALOPRAM HYDROBROMIDE 20 MG TAB PO SCH (09:35)
[2017-02-08] MEDS: METOPROLOL SUCCINATE 25 MG TAB XL PO SCH (09:35)
[2017-02-08] MEDS: MAGNESIUM OXIDE 400 MG TAB PO SCH ×2 (09:35→17:27)
[2017-02-08] MEDS: MUPIROCIN 2% OINT 22 GM TUBE TOP SCH ×2 (09:36→17:27)
[2017-02-08 12:04] VITALS: BP 129/60
[2017-02-08 16:01] VITALS: BP 118/57
--- NOTE | 2017-02-08 16:12 | Progress Note ---
DATE: February 08, 2017 ATTENDING: Dr. Darin Lemus PCP: Dr. Sylvester Benitez HACK SAW OPERATOR: Dr. Gena Suarez, Dr. Luis Potter, Dr. Giuseppe Crouch, and Dr. Mark Brody. CHIEF COMPLAINT: Hip pain, acute hypoglycemia. SUBJECTIVE: No new issues. Patient is reporting does not want to go to the rehab center. Another daughter that I have seen today for the first time is at bedside. Also, reports that she needs to go home today if possible. OBJECTIVE VITALS: Temperature 98, pulse 91, blood pressure 129/60, respirations 18, and satting 98%. Weight 304. GENERAL: Patient is awake, alert and oriented times 3. Patient appears in better spirits today with the other daughter at bedside. LUNGS: Clear to auscultation bilaterally with normal respiratory effort with occasional rhonchi heard. Patient reports he used his Advair at home some times. Patient's daughter at bedside reports, "She is lying. She does not use it all." HEENT: Extraocular muscles are intact. NECK: Supple. CARDIOVASCULAR: Regular rate and rhythm. ABDOMEN: Soft. Bowel sounds present. It is nontender and nondistended. Patient is obese. Pendulous abdomen. NEUROLOGICAL: Nonfocal. EXTREMITIES: No calf tenderness. MEDICATIONS: Please see MAR. IMPRESSION/DIAGNOSES 1. Right hip pain: Will continue physical therapy. Once discharged, will get home health with physical therapy. Order for SNF. Continues to be active. I will discuss the case with case management, Radha, who will talk to the patient again and see if she is willing to go to rehab or if she is going to request to go home. 2. Right diabetic foot ulcer: Continue with wound care. Podiatry is following, as well as infectious disease. 3. Acute kidney injury: Creatinine is down to 1.5 from yesterday. Yesterday, it was 1.25. 4. Hypertension: Continues to be stable blood pressure. 5. Urinary tract infection: Will continue with intravenous antibiotics for now. Appreciate infectious disease recommendations for oral antibiotics as the patient is asking to go home. 6. Anemia: Will get a CBC and BMP in the morning. Her hemoglobin dropped to 8.4. Her hemoccult was negative on February 06, 2017. Patient should continue taking the ascorbic acid, as well as her ferrous sulfate 325 mg p.o. b.i.d. 7. Type 2 diabetes mellitus: Will continue with sliding scale. Will increase her dose of Levemir to 10 units subcutaneous at bedtime due to elevated glucose levels that have been varying from 193 to 308 in the last 24 hours. 8. Asthma: Continue with nebs here. Will add Advair 1 puff b.i.d. DICTATED BY KAM BARBOSA NP Job#: [id number] RI
[2017-02-08] MEDS: ENOXAPARIN SOD INJ 40 MG/0.4 ML SYR SC SCH (17:27)
--- NOTE | 2017-02-08 17:31 | Progress Note ---
DATE: February 08, 2017 CARDIOLOGY PROGRESS NOTE SUBJECTIVE: Patient denies chest pain or shortness of breath. OBJECTIVE VITAL SIGNS: Temperature 98 degrees, pulse 91, respiratory rate 18, blood pressure 129/60, oxygen saturation 98%. GENERAL: Awake, alert, in no acute distress. Obese. LUNGS: Clear to auscultation bilaterally. No wheezes or crackles. CARDIOVASCULAR: Normal rate, regular rhythm. Systolic murmur, 1/6. Normal S1 and S2. ABDOMEN: Soft. EXTREMITIES: Bilateral lower extremities with ulceration. CARDIAC MEDICATIONS 1. Metoprolol succinate 25 mg p.o. daily. 2. Furosemide 40 mg p.o. daily. 3. Amlodipine 10 mg p.o. daily. LABS: WBC 7.07, hemoglobin 8.4, hematocrit 27.8, platelets 232. Sodium 142, potassium 3.9, chloride 107, CO2 27, BUN 25, creatinine 1.15. TELEMETRY: Normal sinus rhythm. IMPRESSION 1. Bilateral lower extremity wounds. 2. Hypertension. 3. Generalized weakness. 4. Diabetes. 5. Recent fall. 6. Anemia. 7. Myaqe-dk-teyxnld kidney disease. 8. Mild peripheral arterial disease with 3-vessel runoff to bilateral lower extremities. RECOMMENDATIONS: Suspect ulcerations may be due to venous insufficiency. Recommend evaluation for venous insufficiency as well as lymphedema as an outpatient. Continue current cardiac medications. Recommend elevation and compression wrapping. Job#: [id number]
[2017-02-08] MEDS: SALMETEROL/FLUTICASONE 500/50 INH SCH (19:55)
[2017-02-08 20:51] VITALS: BP 140/61
[2017-02-08] MEDS ORDERED: INSULIN DETEMIR 100 UNIT/ML PEN SQ SCH (21:00)
[2017-02-08] MEDS: PREGABALIN 50 MG CAP PO SCH (21:21)
[2017-02-09 00:53] VITALS: BP 98/50
[2017-02-09] MEDS: ALBUTEROL/IPRATROPIUM 3 ML NEB NEB SCH ×3 (02:50→11:30)
[2017-02-09 05:05] VITALS: BP 105/48
[2017-02-09] MEDS: SALMETEROL/FLUTICASONE 500/50 INH SCH (07:00)
[2017-02-09] MEDS: INSULIN REGULAR, HUMAN 100 UNIT/1 ML 3ML VIAL SQ SCH ×2 (07:30→11:30)
[2017-02-09] MEDS: OYST-CAL-D 500MG TABLET PO SCH (08:00)
[2017-02-09] MEDS: ASCORBIC ACID 500 MG TAB PO SCH (08:00)
[2017-02-09] MEDS: FERROUS SULFATE 325 MG TAB PO SCH (08:00)
[2017-02-09] MEDS: MULTIVITAMINS/MINERALS TAB PO SCH (08:00)
[2017-02-09] MEDS: PANTOPRAZOLE SOD 40 MG TABEC PO SCH (08:30)
[2017-02-09] MEDS: MAGNESIUM OXIDE 400 MG TAB PO SCH (09:00)
[2017-02-09] MEDS: ZINC SULFATE 220 MG CAP PO SCH (09:00)
[2017-02-09] MEDS: FUROSEMIDE 40 MG TAB PO SCH (09:00)
[2017-02-09] MEDS: MUPIROCIN 2% OINT 22 GM TUBE TOP SCH (09:00)
[2017-02-09] MEDS: MEGESTROL ACETATE 40 MG TAB PO SCH (09:00)
[2017-02-09] MEDS: CITALOPRAM HYDROBROMIDE 20 MG TAB PO SCH (09:00)
[2017-02-09] MEDS: METOPROLOL SUCCINATE 25 MG TAB XL PO SCH (09:00)
[2017-02-09] MEDS: AMLODIPINE BESYLATE 10 MG TAB PO SCH (09:00)
[2017-02-09] MEDS: DOCUSATE SODIUM 100 MG CAP PO SCH (09:00)
[2017-02-09] MEDS: CEFTRIAXONE SOD 1 GM VIAL IV SCH (09:00)
[2017-02-09 12:15] VITALS: BP 144/74
[2017-02-09] MEDS ORDERED: MAGNESIUM OXID400 MG PO (12:39)
[2017-02-09] MEDS ORDERED: Insulin Detemir SQ (12:39)
[2017-02-09] MEDS ORDERED: Calcium Carbonate PO (12:39)
[2017-02-09] MEDS ORDERED: MUCINEX600 MG PO (12:39)
[2017-02-09] MEDS ORDERED: ASCORBIC ACID500 MG PO (12:39)
[2017-02-09] MEDS ORDERED: Multivitamins/Minerals PO (12:39)
[2017-02-09] MEDS ORDERED: ADVAIR 500/501 EA INH (12:39)
[2017-02-09] MEDS ORDERED: TESSALON PERLE100 MG PO (12:39)
[2017-02-09] MEDS ORDERED: MIRALAX17 GM PO (12:39)
[2017-02-09] MEDS ORDERED: MUPIROCIN22 GM TOP (12:39)
[2017-02-09] MEDS ORDERED: MEGESTROL ACETA40 MG PO (12:39)
[2017-02-09] MEDS ORDERED: FEOSOL325 MG PO (12:39)
[2017-02-09] MEDS ORDERED: Albuterol/Ipratropium Nebulize NEB (12:39)
[2017-02-09] MEDS ORDERED: ZINC SULFATE220 M1 PO (12:39)
[2017-02-09] MEDS ORDERED: COLACE100 M1 PO (12:39)
[2017-02-09] MEDS ORDERED: LEVAQUIN500 MG PO (12:56)
--- NOTE | 2017-02-10 04:51 | Discharge Summary ---
PCP: Dr. Wilkes. ATTENDING: Dr. Jarret Benitez. CONSULTANTS: Dr. Gena Suarez, Dr. Bebeto Millan, Dr. Giuseppe Crouch (Dr. Crouch for Dr. Mark Brody). This is a 76-year-old female who comes in with generalized weakness, UTI, hypoglycemia. This female presented with generalized weakness again and hypoglycemia. Patient reported fell on her right side, did not hit head, but did hit her right hip. Patient's blood sugars upon supervisor publications arrival were between 40s to 50s. Patient came into the emergency room, likely related to the hypoglycemia and sustained a fall. On admission, patient's labs had a white count of 5.6, hemoglobin 7.5, hematocrit 24.5, platelets 208,000, and MCV is 82.5. Chemistries were sodium 141 on admission, potassium 4.5, chloride 106, 27, BUN 20, creatinine 0.83, glucose 84, and calcium 8.7. Total bilirubin 0.4, AST 23, ALT 11, and alkaline phosphatase 147. Most recent lab work that was done on February 08, 2017, shows sodium of 142, potassium 3.9, chloride 107, CO2 of 27, BUN 25, creatinine 1.15, glucose had been fluctuating from 156 to 387. Most recent CBC shows on February 08, 2017, white count 7.07, RBC 3.32, hemoglobin 8.4, and hematocrit 27.8. Patient had a hip x-ray that was done, showed no displaced fracture. No femoral neck fracture. Mild right greater trochanter enthesopathy versus likely a small avulsion injury. Patient was seen by ortho and has approved weightbearing. MRI of the pelvis was also done and showed within limits of exam above. Mild normal sagittal muscular the right hip, most consistent with strain or contusion. Hip MRI shows same thing, contusion. Chest x-ray done on February 05, 2017, shows no changes from February 04, 2017, which shows cardiogenic edema. Patient is noncompliant with diet. Today, patient is eating salty pretzels. Patient refused to go to a SNF. Initially, she had approved and agreed to go to SNF for rehab and continued wound care. Yesterday, when another daughter came in, she decided that she was not going to go and that she can make decisions for herself. The daughter that she lives with at home is in today and apparently her other daughter and her do not get along and said that the other daughter made her change her mind for the rehab. Patient will be discharged to home health, physical therapy, and wound care. I have discussed at length with patient's daughter who she lives with and the patient that she needs to continue wound care, continue the oral antibiotics, and follow up with Dr. Suarez as well as Dr. Wilkes, the PCP. I have also called who is the PA with Dr. Suarez and he ordered to use Levaquin 500 mg p.o. for 2 weeks. I did make him aware about the wound culture results that shows that it is resistant to Levaquin. Per he said go ahead and continue with Levaquin just a peripheral study and so Levaquin 500 mg 1 p.o. daily for 2 weeks was prescribed. DISCHARGE DIAGNOSES 1. Right hip pain. Patient should continue with physical therapy at home. 2. Right diabetic foot ulcer. Patient should follow up with podiatry. 3. Acute kidney injury. Patient should continue with primary care physician. Follow up with . 4. Hypertension. Patient will be sent home on 1 oral antihypertensive medication. 5. Urinary tract infection. 6. Anemia. 7. Type 2 diabetes mellitus. 8. Asthma. Patient will be sent home with a prescription for a nebulizer machine as well as with a prescription for Advair. Dictated by Brian Escamilla NP JARRET BENITEZ MD Job#: [id number] CF
--- NOTE | 2017-02-10 09:25 | Progress Note ---
DATE: February 09, 2017 SUBJECTIVE: Patient seen at bedside, accompanied by family members. Doing well. Denies any history of fevers, chills, nausea, or vomiting. OBJECTIVE VITAL SIGNS: Afebrile. Vital signs stable. EXTREMITIES: Ulcerations to both lower extremities continue to improve nicely. Decreased cellulitis, decreased edema with no drainage and foul smell. ASSESSMENT: Multiple grade 1 ulcers with diabetic neuropathy and mild cellulitis. PLAN: Continue local wound care with Bactroban ointment. Patient okay to be discharged. Instructed to follow up in the office upon discharge. Continue offloading. Job#: [id number] CF
--- NOTE | 2017-02-10 16:57 | Progress Note ---
DATE: February 09, 2017 CARDIOLOGY PROGRESS NOTE SUBJECTIVE: The patient denies chest pain or shortness of breath. She reports she is being discharged. OBJECTIVE VITAL SIGNS: Temperature 98 degrees, pulse 96, respiratory rate 18, blood pressure 144/74, oxygen saturation 99% on room air. GENERAL: An obese woman in no acute distress. LUNGS: Clear to auscultation bilaterally. No wheezes or crackles. CARDIOVASCULAR: Normal rate, regular rhythm. Systolic murmur, 1/6. Normal S1 and S2. ABDOMEN: Soft. EXTREMITIES: Bilateral lower extremities with dressings intact. Edema is noted, 2+. CARDIAC MEDICATIONS 1. Metoprolol succinate 25 mg p.o. daily. 2. Furosemide 40 mg p.o. daily. 3. Amlodipine 10 mg p.o. daily. LABS: None today. TELEMETRY: Normal sinus rhythm. IMPRESSION 1. Bilateral lower extremity wounds. 2. Hypertension. 3. Generalized weakness. 4. Diabetes. 5. Recent fall. 6. Anemia. 7. Fhagm-ho-sdspllk kidney disease. 8. Mild peripheral arterial disease with 3-vessel runoff to bilateral lower extremities. RECOMMENDATIONS: Suspect ulcerations may be due to venous insufficiency. Recommend evaluation for this as well as for lymphedema as an outpatient. Continue current cardiac medications. Recommend elevation and compression wrapping. Please have the patient follow up with us in the office in 2 weeks. Thank you for this consult. We will continue to follow. Job#: [id number]
== END 2017-02-09 15:35 | disposition home health service (06) | DRG 638 ==
LOC: ER 12:17 → UNDOADMOB 19:47 → ERHOLD 19:47 → INTOOBSV 19:47 → OBSVTOIN 19:47 → ERHOLD 19:48 → IMCU 22:19 → ERHOLD 22:19 → IMCU 02-02 14:31 → MED/SURG3 02-02 14:31
PROVIDERS: ADMIT Internal Medicine; ATTEND Internal Medicine
PROC: B41D1ZZ Fluoroscopy of Aorta and Bilateral Lower Extremity Arteries using Low Osmolar Contrast (ICD-10-PCS; principal; 2017-02-06)
PROC: 30233N1 Transfusion of Nonautologous Red Blood Cells into Peripheral Vein, Percutaneous Approach (ICD-10-PCS; 2017-02-06)
DX: E11.649 Type 2 diabetes mellitus with hypoglycemia without coma (principal); N39.0 Urinary tract infection, site not specified; L97.921 Non-pressure chronic ulcer of unspecified part of left lower leg limited to breakdown of skin; L97.911 Non-pressure chronic ulcer of unspecified part of right lower leg limited to breakdown of skin; N17.9 Acute kidney failure, unspecified; E11.40 Type 2 diabetes mellitus with diabetic neuropathy, unspecified; E11.51 Type 2 diabetes mellitus with diabetic peripheral angiopathy without gangrene; E11.621 Type 2 diabetes mellitus with foot ulcer; I50.9 Heart failure, unspecified; I11.0 Hypertensive heart disease with heart failure; D64.9 Anemia, unspecified; S70.01XA Contusion of right hip, initial encounter; Z68.43 Body mass index [BMI] 50.0-59.9, adult; L03.116 Cellulitis of left lower limb; L03.115 Cellulitis of right lower limb; E11.622 Type 2 diabetes mellitus with other skin ulcer; J45.909 Unspecified asthma, uncomplicated; B96.1 Klebsiella pneumoniae [K. pneumoniae] as the cause of diseases classified elsewhere; B95.62 Methicillin resistant Staphylococcus aureus infection as the cause of diseases classified elsewhere; E66.01 Morbid (severe) obesity due to excess calories; I87.2 Venous insufficiency (chronic) (peripheral); I89.0 Lymphedema, not elsewhere classified; Z79.4 Long term (current) use of insulin; Z91.11 Patient's noncompliance with dietary regimen; L97.512 Non-pressure chronic ulcer of other part of right foot with fat layer exposed; G89.11 Acute pain due to trauma
CPT/HCPCS: 36140; 36415; 36430; 71010; 72192; 72195; 75625; 75630; 77002; 80048; 80053; 81001; 82270; 82607; 82728; 82746; 82948; 83036; 83540; 83735; 84443; 84466; 85025; 85610; 86850; 86900; 86920; 87040; 87071; 87086; 87186; 87205; 93306; 93925; 96372; 97139; 99285; C1769; J0696; J1650; J2060; J2250; J2270; J3370; J7030; J7050; P9016; Q9967

== ENCOUNTER 2020-10-06 15:30 | Inpatient (IN) | payer MEDICARE, OTHER ==
[~2020-10-06] VITALS: Ht 165.1 cm; Wt 133.0 kg
[~2020-10-06 15:30] MED LIST changes: +ADVAIR 500/501 EA INH; +ASCORBIC ACID500 MG PO; +Albuterol/Ipratropium Nebulize NEB; +CITALOPRAM HBR20 MG PO; +COLACE100 M1 PO; +Calcium Carbonate PO; +FEOSOL325 MG PO; +FUROSEMIDE40 MG PO; +Insulin Detemir SQ; +LEVAQUIN500 MG PO; +LYRICA50 MG PO; +MAGNESIUM OXID400 MG PO; +MEGESTROL ACETA40 MG PO; +METOPROLOL TART25 MG PO; +MIRALAX17 GM PO; +MUCINEX600 MG PO; +MUPIROCIN22 GM TOP; +Multivitamins/Minerals PO; +SUCRALFATE1 GM PO; +TESSALON PERLE100 MG PO; +ZINC SULFATE220 M1 PO
[2020-10-06 17:01] LABS: BASOPHILS % 0.3 % (0.0-1.0); EOSINOPHILS # (AUTO) 0.1 (0.0-0.4); EOSINOPHILS % 0.8 % (0.0-6.0); HEMATOCRIT 26.9 % (34.2-44.1); LYMPHOCYTES # (AUTO) 0.7 (1.0-3.2); LYMPHOCYTES % 6.9 % (18.0-39.1); MEAN CORPUSCULAR HEMOGLOBIN 25.8 pg (28-32); MEAN CORPUSCULAR HGB CONC 29.7 g/dL (31-35); MEAN CORPUSCULAR VOLUME 86.8 fL (81-99); MONOCYTES # (AUTO) 0.7 (0.2-0.8); MONOCYTES % 6.8 % (4.4-11.3); NEUTROPHILS % 84.7 % (38.7-80.0); PLATELET COUNT 348 x10e3/uL (140-360); RED CELL DISTRIBUTION WIDTH 14.3 % (11.7-14.4)
[2020-10-06 17:15] LABS: ALBUMIN 2.8 g/dL (3.5-5.0); ALBUMIN/GLOBULIN RATIO 0.6 (0.8-2.0); ALKALINE PHOSPHATASE 111 IU/L (40-150); ANION GAP 13.5 mmol/L (8-16); BLOOD UREA NITROGEN 34 mg/dL (7-26); BUN/CREATININE RATIO 23 (6-25); CALCIUM 8.5 mg/dL (8.4-10.2); CARBON DIOXIDE 24 mmol/L (22-29); CHLORIDE 108 mmol/L (98-107); CREATINE KINASE 118 IU/L (29-168); CREATININE, SERUM 1.48 mg/dL (0.57-1.11); EST GLOMERULAR FILTRATION RATE 34 ML/MIN (60-); GLUCOSE 155 mg/dL (74-118); POTASSIUM 4.5 mmol/L (3.5-5.1); SODIUM 141 mmol/L (136-145)
[2020-10-06 17:17] LABS: ALANINE AMINOTRANSFERASE < 6 IU/L (0-55)
[2020-10-06] MEDS ORDERED: FENTANYL CITRATE/PF 100MCG/2 ML INJ IV PRN (18:00)
[2020-10-06] MEDS ORDERED: ONDANSETRON HCL INJ 2MG/ML 2ML 2 MG/ML VIAL IV PRN (18:00)
[2020-10-06 22:05] VITALS: BP 105/53
[2020-10-06] MEDS: SODIUM CHLORIDE 0.9% 1000ML 1,000 ML IV SCH (22:30)
[2020-10-06] MEDS: Vancomycin IV 1 GM in SODIUM CHLORIDE 0.9% 250ML 250 ML IV SCH (22:33)
[2020-10-06 22:44] VITALS: BP 105/53
[2020-10-06 22:57] VITALS: BP 105/53
[2020-10-07] VITALS (8 sets, daily range): BP systolic 105–120; BP diastolic 50–62
[2020-10-07] MEDS: CEFEPIME 1 GM in SODIUM CHLORIDE 0.9% 50ML 50 ML IV SCH ×3 (00:09→20:08)
[2020-10-07] MEDS: SODIUM CHLORIDE 0.9% 1000ML 1,000 ML IV SCH ×2 (03:08→09:24)
[2020-10-07 05:27] LABS: BASOPHILS % 0.2 % (0.0-1.0); EOSINOPHILS # (AUTO) 0.1 (0.0-0.4); EOSINOPHILS % 2.3 % (0.0-6.0); HEMATOCRIT 25.3 % (34.2-44.1); HEMOGLOBIN 7.5 g/dL (12.0-16.0); LYMPHOCYTES # (AUTO) 0.9 (1.0-3.2); LYMPHOCYTES % 16.2 % (18.0-39.1); MEAN CORPUSCULAR HEMOGLOBIN 25.9 pg (28-32); MEAN CORPUSCULAR HGB CONC 29.6 g/dL (31-35); MEAN CORPUSCULAR VOLUME 87.2 fL (81-99); MONOCYTES # (AUTO) 0.4 (0.2-0.8); MONOCYTES % 7.2 % (4.4-11.3); NEUTROPHILS # (AUTO) 3.9 (2.1-6.9); NEUTROPHILS % 73.7 % (38.7-80.0); PLATELET COUNT 316 x10e3/uL (140-360); RED CELL DISTRIBUTION WIDTH 14.2 % (11.7-14.4)
[2020-10-07 05:46] LABS: ANION GAP 10.9 mmol/L (8-16); CALCIUM 8.1 mg/dL (8.4-10.2); CREATININE, SERUM 1.11 mg/dL (0.57-1.11); POTASSIUM 3.9 mmol/L (3.5-5.1)
[2020-10-07] MEDS ORDERED: ACETAMINOPHEN 325 MG TAB PO PRN (11:15)
[2020-10-07] MEDS ORDERED: ONDANSETRON HCL INJ 2MG/ML 2ML 2 MG/ML VIAL IV PRN (12:30)
[2020-10-07] MEDS: ACETAMINOPHEN/CODEINE 300MG - 30MG TAB PO PRN (17:25)
[2020-10-07] MEDS: Vancomycin IV 1 GM in SODIUM CHLORIDE 0.9% 250ML 250 ML IV SCH (17:30)
[2020-10-07] MEDS: HEPARIN SOD (PORCINE) 5,000 UNIT/ML VIAL SC SCH (20:09)
[2020-10-07] MEDS ORDERED: ATORVASTATIN CA20 MG PO (22:47)
[2020-10-07] MEDS ORDERED: CEPHALEXIN500 MG PO (22:49)
[2020-10-07] MEDS ORDERED: HYDROCHLOROTHIA25 MG PO (22:51)
[2020-10-07] MEDS ORDERED: JANUVIA50 MG PO (22:52)
[2020-10-07] MEDS ORDERED: LOSARTAN POTAS100 MG PO (22:54)
[2020-10-07] MEDS ORDERED: OMEPRAZOLE40 MG PO (22:55)
[2020-10-07] MEDS ORDERED: TOUJEO SOL300 UNIT/1 SQ (23:01)
[2020-10-08] VITALS (8 sets, daily range): BP systolic 100–118; BP diastolic 55–65
[2020-10-08 05:45] LABS: BASOPHILS % 0.2 % (0.0-1.0); EOSINOPHILS % 1.8 % (0.0-6.0); HEMATOCRIT 24.5 % (34.2-44.1); HEMOGLOBIN 7.2 g/dL (12.0-16.0); LYMPHOCYTES % 6.5 % (18.0-39.1); MEAN CORPUSCULAR HEMOGLOBIN 25.8 pg (28-32); MEAN CORPUSCULAR HGB CONC 29.4 g/dL (31-35); MEAN CORPUSCULAR VOLUME 87.8 fL (81-99); MONOCYTES % 2.8 % (4.4-11.3); NEUTROPHILS % 88.2 % (38.7-80.0); PLATELET COUNT 324 x10e3/uL (140-360); RED BLOOD COUNT 2.79 x10e6/uL (3.6-5.1); RED CELL DISTRIBUTION WIDTH 14.3 % (11.7-14.4)
[2020-10-08 05:46] LABS: EOSINOPHILS # (AUTO) 0.2 (0.0-0.4); LYMPHOCYTES # (AUTO) 0.9 (1.0-3.2); MONOCYTES # (AUTO) 0.4 (0.2-0.8); NEUTROPHILS # (AUTO) 11.7 (2.1-6.9)
[2020-10-08 06:07] LABS: ANION GAP 13.2 mmol/L (8-16); CALCIUM 7.6 mg/dL (8.4-10.2); CREATININE, SERUM 0.87 mg/dL (0.57-1.11); POTASSIUM 4.2 mmol/L (3.5-5.1)
[2020-10-08] MEDS: ACETAMINOPHEN/CODEINE 300MG - 30MG TAB PO PRN ×2 (07:47→16:15)
[2020-10-08] MEDS: FLUOCINONIDE 0.05% 1 EA/15 GM TUBE TOP SCH (09:00)
[2020-10-08] MEDS: HEPARIN SOD (PORCINE) 5,000 UNIT/ML VIAL SC SCH (09:00)
[2020-10-08] MEDS: CEFEPIME 1 GM in SODIUM CHLORIDE 0.9% 50ML 50 ML IV SCH ×2 (09:00→21:39)
[2020-10-08] MEDS: IRON SUCROSE 100 MG in SODIUM CHLORIDE 0.9% 100 ML 100 ML IV SCH (10:30)
[2020-10-08] MEDS: Vancomycin IV 1 GM in SODIUM CHLORIDE 0.9% 250ML 250 ML IV SCH (18:00)
[2020-10-08] MEDS ORDERED: PANTOPRAZOLE SOD 40 MG TABEC PO ONE (21:45)
[2020-10-08] MEDS ORDERED: CALCIUM CARBONATE 500 MG CHEWABLE TABS PO ONE (21:45)
[2020-10-09] VITALS (8 sets, daily range): BP systolic 105–139; BP diastolic 46–65
[2020-10-09 06:09] LABS: BASOPHILS % 0.3 % (0.0-1.0); EOSINOPHILS # (AUTO) 0.4 (0.0-0.4); EOSINOPHILS % 3.4 % (0.0-6.0); HEMATOCRIT 25.3 % (34.2-44.1); HEMOGLOBIN 7.5 g/dL (12.0-16.0); LYMPHOCYTES # (AUTO) 0.9 (1.0-3.2); MEAN CORPUSCULAR HGB CONC 29.6 g/dL (31-35); MEAN CORPUSCULAR VOLUME 87.8 fL (81-99); MONOCYTES # (AUTO) 0.4 (0.2-0.8); MONOCYTES % 3.5 % (4.4-11.3); NEUTROPHILS # (AUTO) 9.7 (2.1-6.9); NEUTROPHILS % 84.1 % (38.7-80.0); PLATELET COUNT 336 x10e3/uL (140-360); RED BLOOD COUNT 2.88 x10e6/uL (3.6-5.1); RED CELL DISTRIBUTION WIDTH 14.3 % (11.7-14.4)
[2020-10-09] MEDS: CEFEPIME 1 GM in SODIUM CHLORIDE 0.9% 50ML 50 ML IV SCH ×2 (09:06→21:51)
[2020-10-09] MEDS: PANTOPRAZOLE SOD 40 MG TABEC PO SCH (09:06)
[2020-10-09] MEDS: FLUOCINONIDE 0.05% 1 EA/15 GM TUBE TOP SCH (10:30)
[2020-10-09] MEDS: ACETAMINOPHEN/CODEINE 300MG - 30MG TAB PO PRN (10:59)
[2020-10-09] MEDS: IRON SUCROSE 100 MG in SODIUM CHLORIDE 0.9% 100 ML 100 ML IV SCH (10:59)
[2020-10-09] MEDS ORDERED: LEXAPRO10 MG PO (11:58)
[2020-10-09] MEDS ORDERED: SERTRALINE HCL50 MG PO (11:58)
[2020-10-09] MEDS ORDERED: LACTULOSE SYRUP 20 GM/30 ML UDC PO NR (13:15)
[2020-10-09] MEDS: SITAGLIPTIN 100 MG TAB PO SCH (13:42)
[2020-10-09] MEDS: SERTRALINE HCL 50 MG TAB PO SCH (13:42)
[2020-10-09] MEDS: ESCITALOPRAM OXALATE 10 MG TAB PO SCH (13:42)
[2020-10-09] MEDS ORDERED: PROAIR HFA INH8.5 GM INH (17:20)
[2020-10-09] MEDS: Vancomycin IV 1 GM in SODIUM CHLORIDE 0.9% 250ML 250 ML IV SCH (18:15)
[2020-10-10] VITALS: BP 104/52
[2020-10-10 04:00] VITALS: BP 114/54
[2020-10-10] MEDS ORDERED: SODIUM CHLORIDE 0.9% 250ML 250 ML ONE (07:51)
[2020-10-10 08:00] VITALS: BP 132/58
[2020-10-10] MEDS: ESCITALOPRAM OXALATE 10 MG TAB PO SCH (08:22)
[2020-10-10] MEDS: PANTOPRAZOLE SOD 40 MG TABEC PO SCH (08:22)
[2020-10-10] MEDS: SERTRALINE HCL 50 MG TAB PO SCH (08:22)
[2020-10-10] MEDS: FLUOCINONIDE 0.05% 1 EA/15 GM TUBE TOP SCH (08:22)
[2020-10-10] MEDS: CEFEPIME 1 GM in SODIUM CHLORIDE 0.9% 50ML 50 ML IV SCH (08:22)
[2020-10-10 08:29] VITALS: BP 132/58
[2020-10-10] MEDS: ACETAMINOPHEN/CODEINE 300MG - 30MG TAB PO PRN (09:41)
[2020-10-10] MEDS: IRON SUCROSE 100 MG in SODIUM CHLORIDE 0.9% 100 ML 100 ML IV SCH (09:41)
[2020-10-10 11:52] VITALS: BP 121/60
[2020-10-10] MEDS: SITAGLIPTIN 100 MG TAB PO SCH (12:30)
[2020-10-10] MEDS ORDERED: ONDANSETRON HCL 4 MG ORAL DISINTEGRATING TAB PO PRN (12:45)
[2020-10-10] MEDS ORDERED: LEVOFLOXACIN250 MG PO (13:31)
== END 2020-10-10 17:12 | disposition home or self-care (01) | DRG 300 ==
LOC: ER 16:49 → ERHOLD 17:47 → MED/SURG2 21:55
PROVIDERS: ADMIT Internal Medicine; ATTEND Internal Medicine
DX: I87.2 Venous insufficiency (chronic) (peripheral) (principal); Z68.42 Body mass index [BMI] 45.0-49.9, adult; N17.9 Acute kidney failure, unspecified; E66.01 Morbid (severe) obesity due to excess calories; K21.9 Gastro-esophageal reflux disease without esophagitis; E78.5 Hyperlipidemia, unspecified; E78.00 Pure hypercholesterolemia, unspecified; B96.5 Pseudomonas (aeruginosa) (mallei) (pseudomallei) as the cause of diseases classified elsewhere; I49.3 Ventricular premature depolarization; E11.42 Type 2 diabetes mellitus with diabetic polyneuropathy; Z79.899 Other long term (current) drug therapy; D72.829 Elevated white blood cell count, unspecified; D50.9 Iron deficiency anemia, unspecified; I10 Essential (primary) hypertension; Z20.822 Contact with and (suspected) exposure to COVID-19; E11.51 Type 2 diabetes mellitus with diabetic peripheral angiopathy without gangrene
CPT/HCPCS: 36415; 80048; 80053; 80202; 82550; 82553; 82948; 83540; 83605; 84466; 84484; 85025; 87040; 99251; 99284; J0692; J1644; J1756; J3010; J3370; J7030; J7050; U0002

== ENCOUNTER 2020-10-31 13:31 | Outpatient (RCR) | payer MEDICARE ==
[~2020-10-31 13:31] MED LIST changes: +ATORVASTATIN CA20 MG PO; +CEPHALEXIN500 MG PO; +FLUOCINONIDE 0.05% 1 EA/15 GM TUBE ONE; +HYDROCHLOROTHIA25 MG PO; +JANUVIA50 MG PO; +LEVOFLOXACIN250 MG PO; +LEXAPRO10 MG PO; +LIDOCAINE VISC 2% SOLN 15 ML UDC ONE; +LIDOCAINE/PRILOCAINE 2.5-2.5% KIT ONE; +MINERAL OIL/PETROLAT/GLYCERI 6OZ BTL ONE; +OMEPRAZOLE40 MG PO; +PROAIR HFA INH8.5 GM INH; +TOUJEO SOL300 UNIT/1 SQ
== END 2020-11-01 ==
LOC: WCC 13:31
PROVIDERS: ATTEND Internal Medicine Infectious Disease
DX: E11.42 Type 2 diabetes mellitus with diabetic polyneuropathy (principal); E11.649 Type 2 diabetes mellitus with hypoglycemia without coma; I87.311 Chronic venous hypertension (idiopathic) with ulcer of right lower extremity; I87.331 Chronic venous hypertension (idiopathic) with ulcer and inflammation of right lower extremity; L97.811 Non-pressure chronic ulcer of other part of right lower leg limited to breakdown of skin; L97.411 Non-pressure chronic ulcer of right heel and midfoot limited to breakdown of skin; L03.115 Cellulitis of right lower limb; R60.0 Localized edema; I87.2 Venous insufficiency (chronic) (peripheral); I73.89 Other specified peripheral vascular diseases; D64.9 Anemia, unspecified; N17.9 Acute kidney failure, unspecified; Z79.4 Long term (current) use of insulin; I10 Essential (primary) hypertension; I11.0 Hypertensive heart disease with heart failure; J44.9 Chronic obstructive pulmonary disease, unspecified; I50.9 Heart failure, unspecified; J45.998 Other asthma; K21.9 Gastro-esophageal reflux disease without esophagitis; B95.62 Methicillin resistant Staphylococcus aureus infection as the cause of diseases classified elsewhere; E66.01 Morbid (severe) obesity due to excess calories; M17.11 Unilateral primary osteoarthritis, right knee
CPT/HCPCS: 87071; 87075; 87186; 87205

== ENCOUNTER → 2020-12-01 | Outpatient (RCR) | payer MEDICARE, OTHER ==
[~2020-12-01] MED LIST changes: -FLUOCINONIDE 0.05% 1 EA/15 GM TUBE ONE; -LIDOCAINE VISC 2% SOLN 15 ML UDC ONE; -LIDOCAINE/PRILOCAINE 2.5-2.5% KIT ONE; -MINERAL OIL/PETROLAT/GLYCERI 6OZ BTL ONE
== END ==
LOC: WCC 11-22 09:11
PROVIDERS: ATTEND Family Medicine Adult Medicine
DX: E11.42 Type 2 diabetes mellitus with diabetic polyneuropathy (principal); E11.649 Type 2 diabetes mellitus with hypoglycemia without coma; I87.332 Chronic venous hypertension (idiopathic) with ulcer and inflammation of left lower extremity; I87.331 Chronic venous hypertension (idiopathic) with ulcer and inflammation of right lower extremity; I87.311 Chronic venous hypertension (idiopathic) with ulcer of right lower extremity; I87.312 Chronic venous hypertension (idiopathic) with ulcer of left lower extremity; I97.821 Postprocedural cerebrovascular infarction following other surgery; L97.811 Non-pressure chronic ulcer of other part of right lower leg limited to breakdown of skin; L97.411 Non-pressure chronic ulcer of right heel and midfoot limited to breakdown of skin; L03.115 Cellulitis of right lower limb; I89.0 Lymphedema, not elsewhere classified; I87.2 Venous insufficiency (chronic) (peripheral); I73.89 Other specified peripheral vascular diseases; R60.0 Localized edema; I10 Essential (primary) hypertension; I11.0 Hypertensive heart disease with heart failure; I50.9 Heart failure, unspecified; D64.9 Anemia, unspecified; K21.9 Gastro-esophageal reflux disease without esophagitis; B95.62 Methicillin resistant Staphylococcus aureus infection as the cause of diseases classified elsewhere; J44.9 Chronic obstructive pulmonary disease, unspecified; B96.5 Pseudomonas (aeruginosa) (mallei) (pseudomallei) as the cause of diseases classified elsewhere; E66.01 Morbid (severe) obesity due to excess calories; J45.998 Other asthma; M17.11 Unilateral primary osteoarthritis, right knee; N17.9 Acute kidney failure, unspecified; Z79.4 Long term (current) use of insulin

== ENCOUNTER 2020-12-27 10:15 | Outpatient (RCR) | payer MEDICARE, OTHER ==
[~2020-12-27 10:15] MED LIST changes: +FLUOCINONIDE 0.05% 1 EA/15 GM TUBE ONE; +TRYPSIN/BALSAM PERU/CASTOR OIL ONE
== END 2021-01-01 ==
LOC: WCC 10:15
PROVIDERS: ATTEND Family Medicine Adult Medicine
DX: E11.42 Type 2 diabetes mellitus with diabetic polyneuropathy (principal); E11.649 Type 2 diabetes mellitus with hypoglycemia without coma; I87.2 Venous insufficiency (chronic) (peripheral); I87.311 Chronic venous hypertension (idiopathic) with ulcer of right lower extremity; I87.331 Chronic venous hypertension (idiopathic) with ulcer and inflammation of right lower extremity; L97.411 Non-pressure chronic ulcer of right heel and midfoot limited to breakdown of skin; L97.311 Non-pressure chronic ulcer of right ankle limited to breakdown of skin; L97.811 Non-pressure chronic ulcer of other part of right lower leg limited to breakdown of skin; R60.0 Localized edema; I89.0 Lymphedema, not elsewhere classified; I73.89 Other specified peripheral vascular diseases; I11.0 Hypertensive heart disease with heart failure; N17.9 Acute kidney failure, unspecified; I10 Essential (primary) hypertension; D64.9 Anemia, unspecified; I50.9 Heart failure, unspecified; B95.62 Methicillin resistant Staphylococcus aureus infection as the cause of diseases classified elsewhere; E66.01 Morbid (severe) obesity due to excess calories; J44.9 Chronic obstructive pulmonary disease, unspecified; J45.998 Other asthma; K21.9 Gastro-esophageal reflux disease without esophagitis; M17.11 Unilateral primary osteoarthritis, right knee; Z79.4 Long term (current) use of insulin